=== PATIENT | female | born 1970 | race Caucasian/White ===

== ENCOUNTER 2024-02-20 06:42 | Observation (INO) ==
--- NOTE | 2024-02-20 08:16 | History & Physical Bridge Note ---
Date of Service February 20, 2024 History & Physical Bridge Note I have examined the patient, reviewed the History & Physical and in the interval since the performance of the History & Physical I have noted the following changes of clinical significance: no changes noted
--- NOTE | 2024-02-20 08:17 | Pre Anesthesia Assessment ---
Date of Service February 20, 2024 Pre Sedation Assessment Vital Signs Temp Pulse Resp BP Pulse Ox O2 Del Method 02/20/24 06:55 36.7 C 58 L 14 113/65 100 Room Air Cardiovascular RRR, no murmur, no edema + femoral pulses present and + radial pulses present; no JVD no edema Respiratory + respiratory effort normal; no respiratory distress, no labored breathing and no retractions no crackles, no rales, no rhonchi and no wheezes Pre-Sedation Airway Assessment Smoking Status: Former smoker Hx Sleep Apnea: No Short, Thick Neck: No Thyromental Distance: > or= 3.5 Finger Breadths Oral Cavity: + Dental Abnormalities Mallampati Class: III ASA: ASA3 NPO Status Date of Last Intake of Fluids: 02/20/24 Time of Last Intake of Fluids: 06:00 Last Oral Intake of Fluids Comment: sip of water with meds Date of Last Intake of Solid Food: 02/19/24 Time of Last Intake of Solid Foods: 18:00 Procedure Planning Contraindications for Sedation: none Current Medications Reviewed: Yes Notes The planned sedation has been discussed with the patient. Informed Consent was obtained. I have identified the patient, determined the appropriateness of sedation and have assessed the patient immediately prior to the procedure. All medicine(s) and interventions are by my order.
--- NOTE | 2024-02-20 09:10 | Post Anesthesia Assessment ---
Date of Service February 20, 2024 Post Sedation Assessment Vital Signs Temp Pulse Resp BP Pulse Ox O2 Del Method 02/20/24 06:55 36.7 C 58 L 14 113/65 100 Room Air Recovery Score Activity: Moves 4 extremities Respiration: Deep Breath/Cough Circulation: +/-20% PreAnes Value Consciousness: Arouseable (by name) Oxygen Saturation: > 92% On Room Air Discharge Sedation Level of Care: Phase I Post Sedation Plan On clinical assessment, the patient appears to have tolerated the sedation without complications. Patient is recovering as anticipated. Patient will continue to be monitored by nursing and may be discharged when sedation discharge criteria are met per below protocol. Upon Completions of procedure up to 15 minutes continue every 5 minute vital signs and the P.A.R. score; then discharge to a Phase I or Fast Track to Phase II per the following guidelines: * Discharge Patient to appropriate Phase II area if PAR is 8 or greater or return to pre- procedure baseline. The post - procedure orders will be as directed. * If PAR score is less than 8 or not return to pre-procedure baseline then patient will follow Phase I monitoring till PAR is reached for Phase II. The Phase I may be done in procedure room or may call to secure a Phase I area. * If naloxone or flumazenil are used for reversal, hold in Phase I for continued monitoring from when last reversal dose was given for a minimum of 60 minutes or longer pending the nurse and/or physician discretion of patient condition before discharge to Phase II. Please call the Sedation Physician to re-evaluate and complete post-note for discharge to Phase II area. Do NOT discharge from procedure sedation or Phase 1 until post- sedation evaluation note is complete by procedure /sedation MD Sedation Discharge Instructions to be given to the patient at discharge to home.
--- NOTE | 2024-02-20 09:19 | Cardiac Catheterization ---
Cardiac Cath Procedure Full Procedure Date February 20, 2024 Pre-Procedure Diagnosis Pre-Procedure Diagnosis: Angina and Positive Stress Test AUC Score AUC Score: 7 Post-Procedure Diagnosis Post-Procedure Diagnosis: Severe CAD and Normal Intracardiac Pressures Procedure(s) Performed Procedure(s) Performed: Coronary Angiography and Left Heart Cath Scoop Filler Edmundo Cooley DO Manager Educational(s) Builder'S Labourer DUPLICATOR PUNCH OPERATOR Estimated Blood Loss Estimated Blood Loss: 5cc Medication(s) Medication(s): Fentanyl, Heparin, Lidocaine 1%, Nicardipine, Nitroglycerin and Versed Summary of Findings 90% mid LAD stenosis distal to first septal apparel embroidery digitizer. Hemodynamics Rest Ao:: 97/57/74 Final Ao: 106/56/78 LV: 108/-4/10 Recommendations Recommendations: PCI without planned CABG Specimens Specimens: None Radiation Exposure (mGy) 201 Contrast (mls) 30 Fluids (cc crystalloids) Fluids (cc crystalloids): 70 Nss Drains Drains: N/A Anesthesia Moderate sedation. Start 0839. End 0903. Sedation monitor: Navin MENDOZA Procedural Complication(s) None Disposition Patient remained in Payroll Representative for PCI of LAD. I attest to the content of the Intraoperative Record and any orders documented therein. Any exceptions are noted below. ACC Data: Payroll Representative Cardiac Status Clinical evaluation leading to the procedure Progressive exertional angina. Abnormal exercise stress echo suggestive of ischemia. CAD Presenation: Positive Stress Test and Unstable angina Anginal Classification: CCS III Heart Failure: No Imaging Studies Past 6 Months: Yes Stress Studies Past 6 Months: Yes Stress Echocardiogram: Yes - Positive and Risk/Extent of Ischemia (Intermediate) Coronary Anatomy Dominant: Right Left Main (% Stenosis): Normal LAD (% Stenosis): Proximal (20%) and Mid (90% with 30% stenosis distal to 2nd diagonal branch vessel.) D1 (% Stenosis): Ostial (20%) D2 (% Stenosis): Ostial (30%) Circumflex (% Stenosis): Normal (Small nondominant vessel) OM1 (% Stenosis): Normal RCA (% Stenosis): Proximal (30%) and Mid (Luminal irregularities, 20%) R PDA (% Stenosis): Normal R PL1 (% Stenosis): Normal Diagnostic Physicians Name: Edmundo Cooley DO Closure Device Percutaneous Entry Location: Radial Closure Device: Radial Band Recommendations: PCI without planned CABG Intraprocedure Events Significant Disection: No Perforation: No
[2024-02-20] MEDS: fentaNYL citrate PF 100 MCG/2 ML VIAL ONE (10:04)
[2024-02-20] MEDS: HEPARIN (PORCINE) 1000 UNIT/ML 10 ML (CATH LAB USE ONLY) ONE (10:06)
[2024-02-20] MEDS: MIDAZOLAM HCL 1 MG/ML 2ML VIAL ONE ×2 (10:07→10:08)
[2024-02-20] MEDS: OPTIRAY 350 ONE (10:07)
[2024-02-20] MEDS: niCARdipine HCL INJ 2.5 MG/ML 10 ML AMP ONE (10:07)
[2024-02-20] MEDS: NITROGLYCERIN/D5W 100MCG/ML 20ML SYR ONE (10:08)
[2024-02-20] MEDS: CLOPIDOGREL BISULFATE 300 MG TAB ONE (10:08)
[2024-02-20] MEDS: CLOPIDOGREL BISULFATE 75 MG TAB ONE (10:08)
--- NOTE | 2024-02-20 10:16 | Post Anesthesia Assessment ---
Date of Service February 20, 2024 Post Sedation Assessment Vital Signs Temp Pulse Resp BP Pulse Ox O2 Del Method 02/20/24 06:55 98.1 F 58 L 14 113/65 100 Room Air Recovery Score Activity: Moves 4 extremities Respiration: Deep Breath/Cough Circulation: +/-20% PreAnes Value Consciousness: Arouseable (by name) Oxygen Saturation: > 92% On Room Air Discharge Sedation Level of Care: Fast Track Phase II Post Sedation Plan On clinical assessment, the patient appears to have tolerated the sedation without complications. Patient is recovering as anticipated. Patient will continue to be monitored by nursing and may be discharged when sedation discharge criteria are met per below protocol. Upon Completions of procedure up to 15 minutes continue every 5 minute vital signs and the P.A.R. score; then discharge to a Phase I or Fast Track to Phase II per the following guidelines: * Discharge Patient to appropriate Phase II area if PAR is 8 or greater or return to pre- procedure baseline. The post - procedure orders will be as directed. * If PAR score is less than 8 or not return to pre-procedure baseline then patient will follow Phase I monitoring till PAR is reached for Phase II. The Phase I may be done in procedure room or may call to secure a Phase I area. * If naloxone or flumazenil are used for reversal, hold in Phase I for continued monitoring from when last reversal dose was given for a minimum of 60 minutes or longer pending the nurse and/or physician discretion of patient condition before discharge to Phase II. Please call the Sedation Physician to re-evaluate and complete post-note for discharge to Phase II area. Do NOT discharge from procedure sedation or Phase 1 until post- sedation evaluation note is complete by procedure /sedation MD Sedation Discharge Instructions to be given to the patient at discharge to home.
--- NOTE | 2024-02-20 10:19 | Cardiac Catheterization ---
ACC Data: Carpenter Prototype Cardiac Status Clinical evaluation leading to the procedure CAD Presenation: Positive Stress Test and Unstable angina Anginal Classification: CCS III Diagnostic Physicians Name: Ramirez Monsalve MD Closure Device Recommendations: PCI without planned CABG Cardiac Cath Procedure Full Procedure Date February 20, 2024 Pre-Procedure Diagnosis Pre-Procedure Diagnosis: Angina and Positive Stress Test AUC Score AUC Score: 7 Post-Procedure Diagnosis Post-Procedure Diagnosis: Severe CAD and Normal Intracardiac Pressures Procedure(s) Performed Procedure(s) Performed: Coronary Angiography, Drug Eluting Stent and IVUS Flash Drier Operator Ramirez Monsalve MD Food Service Steward(s) Deibler Estimated Blood Loss Estimated Blood Loss: 20 Medication(s) Medication(s): Clopidogrel, Fentanyl, Heparin, Nicardipine, Nitroglycerin and Versed Summary of Findings Indication: Progressive angina, abnormal stress test Access: 6 Fr right radial artery Catheters: EBU 3.5 guide Findings: For full details of patient's coronary angiography please see cath report dictated by Dr. Cooley. Briefly, patient found to have severe single-vessel disease with 90+% mid LAD involving bifurcation of D1, D2. Decision to proceed with PCI. -- PCI -- Antithrombotic therapy: Heparin, clopidogrel Procedure: Left main cannulated with EBU 3.5 guide Pre-procedure flow MANUELA 2-3 Trapper Bird 50 wire placed into D1 Whisper wire passed across LAD lesion into distal vessel Mid LAD lesion predilated with 2.5 compliant balloon Velasquez IVUS catheter placed to mid LAD. Pullback revealed diffuse mildly calcified disease extending back to near LAD ostium. No significant left main disease Dilated lesion stented with 2.5 x 30 mm Amanuel drug-eluting stent Stent post-dilated with 3.0 noncompliant balloon Repeat IVUS showed well-expanded, well apposed stent with no apparent edge complications. IC vasodilators administered for spasm Post procedure MANUELA 3 flow, stent well expanded with minimal residual stenosis and no apparent cardiac complications. Arterial Closure: TR band Summary: 1. Successful PCI of proximal to mid LAD with single drug-eluting stent (2.5 x 30 mm Amanuel; postdilated with 3.0 NC). Recommendations: To PCU for continued monitoring Loaded with clopidogrel 600 mg in Carpenter Prototype Continue dual-antiplatelet therapy for at least 6 months Continue statin, and ASCVD risk factor modification Consult cardiac Rehab Hemodynamics Rest Ao:: 114/58/82 Final Ao: 98/49/69 LV: -- Recommendations Recommendations: PCI without planned CABG Specimens Specimens: None Radiation Exposure (mGy) 634 Contrast (mls) 115 Fluids (cc crystalloids) Fluids (cc crystalloids): 70 Nss Drains Drains: N/A Anesthesia Moderate sedation. Start 09. End 952. Sedation monitor: Navin MENDOZA Procedural Complication(s) None Disposition PCU I attest to the content of the Intraoperative Record and any orders documented therein. Any exceptions are noted below. [facility] Card Cath Procedure Codes Therapeutic Services & Ancillary Procedure 1: Cardiovascular Tx and Anc Procedures: 53955 IV Ultrasound (Coronary or Graft) Moderate Sedation Procedure 1: Sedation/Anesthesia: 68771 Mod Sedation by the same physician; Ea [id number] Minutes Stenting Procedure 1: Cardiovascular Stent Procedures: 91932 Perc transcatheter placement of intracoronary stent(s), with ang PG Care Time/CCT Total # of Minutes Spent Total Time Spent with Patient: Total time spent is greater than 50% in coordination of care (as documented) at patient's floor/unit and/or counseling patient:
--- NOTE | 2024-02-20 10:49 | History & Physical Report ---
Date of Service February 20, 2024 Assessment & Plan (1) Unstable angina: Plan: Pt was evaluated for progressive symptoms of angina and underwent a stress test in January which was positive. She was seen by [facility] cardiology and cardiac cath was recommended. She underwent cardiac cath today w/ Dr. Cooley and found to have stenosis in LAD. She then underwent PCI with Dr. Monsalve. Patient was found to have severe single-vessel disease with 90+% mid LAD involving bifurcation of D1, D2. Now s/p Successful PCI of proximal to mid LAD with single drug-eluting stent (2.5 x 30 mm [place]; postdilated with 3.0 NC). Recommendations: To PCU for continued monitoring Loaded with clopidogrel 600 mg in Surg Physician Asst Continue dual-antiplatelet therapy for at least 6 months Continue statin, and ASCVD risk factor modification Consult cardiac Rehab Pt to cont. ASA, plavix, metoprolol, rosuvastatin [facility] cardiology - Dr. Cooley following Hx of smoking - reports she quit smoking a year ago Depression - cont. citalopram History of Present Illness Chief Complaint: unstable angina/ positive stress test Primary Care Provider: NO PCP 53 yo F with hx of thyroid nodule/ multinodular goiter, migraine, depression, bipolar d/o, HTN, HLD , hx of smoking who was evaluated for progressive symptoms of angina and underwent a stress test in January which was positive. She was seen by [facility] cardiology and cardiac cath was recommended. She underwent cardiac cath today w/ Dr. Cooley and found to have stenosis in LAD. She then underwent PCI with Dr. Monsalve. Currently she is feeling well, denies any chest pain, shortness of breath, dizziness. She is only feeling hungry and she is having lunch. Her sister in law is present at the bedside. Pt says she quit smoking a year ago. Says she was having chest pain when walking up the stairs which prompted her the evaluation but most recently she has been having chest pains even at rest when in bed. Stress test - Exercise stress echocardiogram January 2024: Interpretation Summary The examination is adequate to evaluate the referral indication. The stress echo is borderline positive for inducible ischemia. Exercise capacity is below average . There was an accelerated heart rate response to exercise Blood pressure response to exercise was normal. The stress test was terminated due to dyspnea. Mild low-grade chest burning noted in the recovery phase Equivocal 0.5-1mm horizontal/downsloping ST-segment depression is noted in inferior leads. The left ventricular wall motion is normal. With stress the apical inferoseptal wall fails to improve to the degree of other segments. All other wall segments become hyperdynamic The left ventricular ejection fraction increases normally with stress. The left ventricular systolic function is normal. The qualitative LV ejection fraction is 55-59% (normal). Allergies Allergy/AdvReac Type Severity Reaction Status Date / Time aspirin AdvReac Abdominal Verified 02/20/24 07:15 Pain topiramate [From Topamax] AdvReac Drowsy Verified 02/20/24 07:15 Home Medications Medication Instructions Recorded Confirmed Type sumatriptan succinate 25 mg tablet 100 mg PO DIRECTED PRN Migraine 09/29/18 09/29/18 History (Imitrex) Headache albuterol sulfate 90 mcg/actuation 2 puff inhalation 6XD PRN Wheezing 02/20/24 02/20/24 History aerosol inhaler aspirin 81 mg tablet,delayed 81 mg PO DAILY 02/20/24 02/20/24 History release citalopram 20 mg tablet (Celexa) 10 mg PO DAILY 02/20/24 02/20/24 History metoprolol succinate 50 mg 50 mg PO DAILY 02/20/24 02/20/24 History tablet,extended release 24 hr nitroglycerin 0.4 mg sublingual 0.4 mg sublingual PRN Chest Pain 02/20/24 History tablet rosuvastatin 10 mg tablet 10 mg PO DAILY 02/20/24 02/20/24 History sumatriptan 20 mg/actuation nasal 20 mg intranasal PRN Headache 02/20/24 History spray Past Med/Surg History Medical History (Updated 02/20/24 @ 10:44 by Eliud Minaya MD) Depression Endometriosis Migraine Multinodular goiter Thyroid nodule Surgical History (Updated 02/20/24 @ 10:45 by Eliud Minaya MD) History of excision of lesion Endometriosis S/P removal of ovarian cyst Family History (Updated 02/20/24 @ 10:47 by Eliud Minaya MD) Grandfather (Maternal) Heart disease Grandmother (Maternal) Cancer Heart disease Social History Smoking Status: Former smoker Hx Alcohol Use: No Hx Substance Use: No Preferred Language: Japanese Communication Ability: Effective Health/Safety Job Titles Required: No Beliefs That Will Affect Care: None Current Living Situation: Family Feels Safe at Home: Yes Assistive Devices: None Review of Systems Review of Systems: All systems reviewed & are unremarkable except as noted in HPI & below Physical Exam Constitutional: WD/WN, vitals as above Eyes: PERRL, conjunctivae normal, anicteric sclerae ENMT: external ear and nose normal, oropharynx normal Neck: normal visual inspection Respiratory: normal respiratory effort, lungs clear to auscultation Cardiovascular: RRR, no murmur, no edema Chest (Breasts): Chest: normal inspection of chest Gastrointestinal (Abdomen): normal bowel sounds, soft, nontender, no hepatosplenomegaly Musculoskeletal: no cyanosis or clubbing, extremities motor strength 5/5 Skin: no rashes, warm and dry Neurologic: PERRL, EOMI, accommodation nl, no face palsy, no dysarthria Psychiatric: A+Ox3, euthymic affect Lymphatic: no lymphedema Results & Data Results & Data Vital Signs (Past 12 Hours) Vital Signs Temp Pulse Resp BP BP Pulse Ox O2 Del Method 02/20/24 10:30 53 L 16 118/67 97 Room Air 02/20/24 10:15 54 L 16 112/71 97 Room Air 02/20/24 10:00 57 L 16 109/62 97 Room Air 02/20/24 06:55 36.7 C 58 L 14 113/65 100 Room Air Medications Administered Current Inpatient Medications Aspirin (Aspirin 81 Mg Ectab) 81 mg PO QAM AIMEE Stop: 03/22/24 08:59 Clopidogrel Bisulfate (Clopidogrel Bisulfate 75 Mg Tab) 75 mg PO QAM AIMEE Stop: 03/22/24 08:59 Sodium Chloride (Nss) 1,000 mls @ 100 mls/hr IV .Q10H AIMEE Stop: 02/20/24 15:14 Metoprolol Succinate (Metoprolol Succ 50mg Ext Rel Tab) 50 mg PO DAILY AIMEE Stop: 03/22/24 08:59 Rosuvastatin Calcium (Rosuvastatin Calcium 10 Mg Tab) 10 mg PO DAILY AIMEE Stop: 03/22/24 08:59
[2024-02-20] MEDS ORDERED: ACETAMINOPHEN 325 MG TAB PO PRN (10:53)
[2024-02-20] MEDS ORDERED: POLYETHYLENE (MIRALAX) 17 GM PACK PO PRN (10:53)
--- OUTSIDE RECORDS SUMMARY | 2024-02-20 12:24 | External Medical Summary | Summary of Care ---
Author Name Unknown Organization [facility] Address [address] [place] [address] Phone [phone] Care Team Providers Care Construction Laborer Name Role Phone Nisa Sánchez MD Primary Care Provider Reason for Visit * Reason Comments NEW PATIENT * Evaluate & Treat - Unlimited Visits (Within 10 days (routine)) - Pending Review Specialty Diagnoses / Procedures Referred By Contact Referred To Contact Cardiovascular Medicine / Cardiology Diagnoses Ischemia Rubén Martinez MD [address] [place] [address] Referral ID Status Reason Start Date Expiration Date Visits Requested Visits Authorized [id number] Pending Review Specialty Services Required 01/30/[phone] Encounter Details Date Type Department Care Team (Late st Contact Info) Description 02/01/2024 8:30 AM EDT Office Visit Cardiology, [facility] [address] [place] [facility] [place] [address] Velasquez Rollins DO [address] [facility] [place] [id number] Abnormal stress echocardiogram*; History of smoking Allergies Active Allergy Reactions Criticality Noted Date Comments Topiramate Other (Please comment) 09/05/2010 lethargy documented as of this encounter (statuses as of 02/01/2024) Medications Medication Sig Dispensed Refills Start Date End Date Status SUMAtriptan Succinate 100 MG Oral TabletIndications: Migraine with aura,Chronic daily headache,Cervicalg ia Take one half to one tablet by mouth at start of headache; may repeat once after two hours. Take up to 2 days a week. 9 Tablet 11 08/02/2022 Active SUMAtriptan 20 MG/ACT Nasal Solution (Imitrex)Indicatio ns:Migraine with aura,Chronic daily headache,Cervicalg ia Use 1 spray at start of severe headache for rescue; may repeat once after 2 hours. Can take a triptan up to 2 days/week. 4 Each 0 02/15/2023 Active Aspirin 81 MG Oral Tablet Delayed Release Take 1 Tablet by mouth in the morning. 0 Active Metoprolol Succinate ER 50 MG Oral Tablet Extended Release 24 Hour (toPROL XL) Take 1 Tablet by mouth in the morning. 0 Active Citalopram Hydrobromide 20 MG Oral Tablet (CeleXA) Take 1 Tablet by mouth in the morning. Take 1/2 tab daily . 0 Active Rosuvastatin Calcium 10 MG Oral Tablet (Crestor) Take 1 Tablet by mouth in the morning. 0 Active Nitroglycerin 0.4 MG Sublingual Tablet Sublingual (Nitrostat) Place 1 Tablet under the tongue every 5 minutes as needed for Pain, Chest. 0 Active Albuterol Sulfate HFA 108 (90 Base) MCG/ACT Inhalation Aerosol SolutionIndication s:Bronchitis, complicated Inhale by mouth 2 Puffs every 4 hours as needed for Wheezing or Dyspnea. 3 g 4 02/06/2022 02/01/2024 Discontinued (Medication List Clean Up) Loratadine 10 MG Oral Tablet (Claritin) Take by mouth 1 Tablet in the morning. 30 Tablet 2 04/04/2022 02/01/2024 Discontinued (Medication List Clean Up) Simvastatin 20 MG Oral Tablet (Zocor) Take 1 Tablet by mouth every night at bedtime. 90 Tablet 3 12/21/2022 02/01/2024 Discontinued (Medication List Clean Up) Mirtazapine 45 MG Oral Tablet (Remeron) TAKE ONE TABLET BY MOUTH NIGHTLY AT BEDTIME 90 Tablet 0 07/05/2023 02/01/2024 Discontinued (Medication List Clean Up) documented as of this encounter (statuses as of 02/01/2024) Active Problems Problem Noted Date Diagnosed Date Thyroid nodule 11/06/2018 Multinodular goiter (nontoxic) 09/28/2016 No advance directives 06/25/2014 Overview: No, Advance Directive brochure given. History of smoking 06/19/2008 Depression 07/30/2002 Overview: anxiety disorder CLASSICAL MIGRAINE WITHOU MENTION OF INTRACTABLE MIGRAINE 04/01/2002 Endometriosis 04/01/2002 Abnormal Papanicolaou smear of vagina and vagina l HPV 04/01/2002 Overview: ICD-10 update of inactive term documented as of this encounter (statuses as of 02/01/2024) Resolved Problems Problem Noted Date Diagnosed Date Resolved Date Food insecurity 06/20/2021 12/27/2022 Overview: Per [facility] Protocol Bipolar 1 disorder 11/01/2016 1 Thyromegaly 03/29/2015 10/14/2017 Musculoskeletal pain 09/17/2014 015 Migraine with aura 05/13/2014 4 Hyperbilirubinemia 05/04/2014 7 Physical exam, routine 05/04/201401/06 SOB (shortness of breath) 03/05/2013 Chronic daily headache 05/08/201210/14 Cervicalgia 05/08/2012 10/14/2017 LUMP OR MASS IN BREAST - left 07/20/2010 10/14/2017 Costochondritis 06/19/2008 10/14/2017 Acute bronchitis, antibiotics not indicated 11/17/2007 01/07/2009 Overview: Resolved per Benign Acute Dxs Protocol #3 Primary thrombocytopenia 04/15/200301/2017 Chronic sinusitis 04/01/2002 10/14/2017 documented as of this encounter (statuses as of 02/01/2024) Immunizations Name Administration Dates Next Due PPD 12/18/2022 documented as of this encounter Social History Tobacco Use Types Packs/Day Years Used Date Smoking Tobacco: Former Cigarettes 0.5 28 Smokeless Tobacco: Never Comments:Stopped Smoking Dec ember 2021 Alcohol Use Standard Drinks/Week Comments No 0 (1 standard drink = 0.6 oz pur e alcohol) PHQ-2 Answer Date Recorded PHQ-2 Score 7 08/30/2020 Hunger Vital Sign Answer Date Recorded Within the past 12 months, y ou worried that your food would run out before you got the money to buy more. Never true 12/16/19 23 Within the past 12 months, t he food you bought just didn't last and you didn't have money to get more. Never true 12/16/2022 Sex and Gender Information Value Date Recorded Sex Assigned at Female 12/16/2022 7:22 AM EST Gender Identity Female 12/16/2022 7:22 AM EST Sexual Orientation Straight 12/16/2022 7: 22 AM EST Job Start Date Occupation Industry Not on file Not on file Not on file documented as of this encounter Last Filed Vital Signs Vital Sign Reading Time Taken Comments Blood Pressure 122/84 02/01/2024 8:40 AM EDT Pulse 66 02/01/2024 8:40 AM EDT Temperature - - Respiratory Rate 16 02/01/2024 8:40 AM EDT Oxygen Saturation - - Inhaled Oxygen Concentration - - Weight 57.2 kg (126 lb) 02/01/2024 8:40 AM EDT Height - - Body Mass Index 20.34 05/23/2023 11:44 AM EDT documented in this encounter Functional Status Functional Status Response Date of Assess ment Are you deaf or do you have serious difficulty hearing? No 10/06/2015 Are you blind or do you have serious difficulty seeing, even when wearing glasses? No 10/06/2015 Do you have serious difficul ty walking or climbing stairs? (5 years old or older) No 10/06/2015 Do you have difficulty dress ing or bathing? (5 years old or older) No 10/06/2015 Because of a physical, menta l, or emotional condition, do you have difficulty doing errands alone such as visiting a doctor s office or shopping? (15 years old or older) Yes-Due to migraine pain 10/06/2015 Cognitive Status Response Date of Assessm ent Because of a physical, menta l, or emotional condition, do you have serious difficulty concentrating, remembering, or making decisions? (5 years old or older) Yes-Due to migraine pain 10/06/2015 documented as of this encounter Progress Notes * Velasquez Rollins, DO - 02/01/2024 9:06 AM EDT Cardiology Outpatient Consultation Viet Baumannki Olya Rushing is a 53 year old female referred by Nisa Clements MD who is seen in consultation for abnormal stress test. HPI: This is a 53-year-old female patient with no prior history of heart disease. She did smoke up untillast year. She is treated for HLD and hypertension. No previous history of diabetes. She has noticed some activity related chest pain. She typically describes walking up flight of stairs and noticingsome discomfort. As a result, she underwent an exercise stress echocardiogram. There was a below average exercise performance with borderline EKG changes and possible inferior wall wall motion abnormalities on the stress echo. Past Medical History: Diagnosis Date Bipolar 1 disorder (HCC) 2013 Chronic sinusitis 04/01/2002 CLASSICAL MIGRAINE WITHOU MENTION OF INTRACTABLE MIGRAINE 04/01/2002 Depressive disorder, not elsewhere classified 07/30/2002 anxiety disorder Endometriosis 04/01/2002 Patient Active Problem List Diagnosis Code CLASSICAL MIGRAINE WITHOU MENTION OF INTRACTABLE MIGRAINE G43.109 Endometriosis N80.9 Abnormal Papanicolaou smear of vagina and vaginal HPV [id number] Depression F32.A No advance directives Z78.9 History of smoking Z87.891 Multinodular goiter (nontoxic) E04.2 Thyroid nodule E04.1 Past Surgical History: Procedure Laterality Date LAP;EXCISION OF LESIONS 2000 endometriosis LIGATE/CUT OVIDUCT(S) 2000 REMOVAL OF OVARIAN CYST(S) 1998 L side, benign Family History Problem Relation Age of Onset Heart Disorder Grandmother (Maternal) Heart Disorder Grandfather (Maternal) Cancer Grandmother (Maternal) lung smoker, bone No Past Hx Mother No Past Hx Father No Past Hx Brother No Past Hx Brother Social History Tobacco Use Smoking status: Former Current packs/day: 0.50 Average packs/day: 0.5 packs/day for 28.0 years (14.0 ttl pk-yrs) Types: Cigarettes Smokeless tobacco: Never Tobacco comments: Stopped Smoking November 09, 2022 Substance Use Topics Alcohol use: No Drug use: No Review of patient's allergies indicates: Allergen Reactions Topamax [Topiramate] Other (Please comment) lethargy Current Outpatient Medications Medication Sig Dispense Refill SUMAtriptan Succinate 100 MG Oral Tablet Take one half to one tablet by mouth at start of headache;may repeat once after two hours. Take up to 2 days a week. 9 Tablet 11 SUMAtriptan 20 MG/ACT Nasal Solution (Imitrex) Use 1 spray at start of severe headache for rescue; may repeat once after 2 hours. Can take a triptan up to 2 days/week. 4 Each 0 Aspirin 81 MG Oral Tablet Delayed Release Take 1 Tablet by mouth in the morning. Metoprolol Succinate ER 50 MG Oral Tablet Extended Release 24 Hour (toPROL XL) Take 1 Tablet by mouth in the morning. Citalopram Hydrobromide 20 MG Oral Tablet (CeleXA) Take 1 Tablet by mouth in the morning. Take 1/2 tab daily . Rosuvastatin Calcium 10 MG Oral Tablet (Crestor) Take 1 Tablet by mouth in the morning. Nitroglycerin 0.4 MG Sublingual Tablet Sublingual (Nitrostat) Place 1 Tablet under the tongue every5 minutes as needed for Pain, Chest. Albuterol Sulfate HFA 108 (90 Base) MCG/ACT Inhalation Aerosol Solution Inhale by mouth 2 Puffs every 4 hours as needed for Wheezing or Dyspnea. (Patient not taking: Reported on 12/18/2022) 3 g 4 Loratadine 10 MG Oral Tablet (Claritin) Take by mouth 1 Tablet in the morning. (Patient not taking:Reported on 12/18/2022) 30 Tablet 2 Simvastatin 20 MG Oral Tablet (Zocor) Take 1 Tablet by mouth every night at bedtime. (Patient not taking: Reported on 05/23/2023) 90 Tablet 3 Mirtazapine 45 MG Oral Tablet (Remeron) TAKE ONE TABLET BY MOUTH NIGHTLY AT BEDTIME (Patient not taking: Reported on 02/01/2024) 90 Tablet 0 No current facility-administered medications for this visit. ROS: Review of Systems: See HPI for pertinent positives. All other review of systems is negative. PHYSICAL EXAMINATION BP 122/84 | Pulse 66 | Resp 16 | Wt 57.2 kg (126 lb) | LMP 2018 (Approximate) | BMI 20.34 kg/m | BSA 1.63 m Body mass index is 20.34 kg/m. General: no acute distress and stated age Head: normocephalic, no masses, lesions, tenderness or abnormalities Eyes: conjunctiva are pink and non-injected, sclera clear Neck: supple, no adenopathy, no bruits, normal jugular venous pulse, no hepatojugular reflux Chest: normal shape and normal respiratory effort Lungs: clear to auscultation and percussion Cardiac Exam: - regular rate & rhythm, no murmurs gallops or rubs - normal S1, normal S2 Pulses: 2(+) throughout Abdomen: abdomen soft, non-tender, no abnormal masses and no hepatosplenomegaly Musculoskeletal: no gait disturbance, no joint inflammation, no deforming arthritis Extremities: no edema and no cyanosis Neuro: grossly normal exam Laboratory Data Review: EKG today is normal sinus rhythm and within normal limits Exercise stress echocardiogram January 2024: Interpretation Summary The examination is adequate to evaluate the referral indication. The stress echo is borderline positive for inducible ischemia. Exercise capacity is below average . There was an accelerated heart rate response to exercise Blood pressure response to exercise was normal. The stress test was terminated due to dyspnea. Mild low-grade chest burning noted in the recovery phase Equivocal 0.5-1mm horizontal/downsloping ST-segment depression is noted in inferior leads. The left ventricular wall motion is normal. With stress the apical inferoseptal wall fails to improve to the degree of other segments. All other wall segments become hyperdynamic The left ventricular ejection fraction increases normally with stress. The left ventricular systolic function is normal. The qualitative LV ejection fraction is 55-59% (normal). Impression: 1. New onset angina 2. Positive exercise stress echocardiogram for ischemia 3. History of hypercholesterolemia and smoking Plan: I had a long discussion with the patient and her [id number] today who is with her. I recommendeda cardiac catheterization to her. I explained the risk, benefit and intent to the procedure to her including the potential for a catheter based interventions such as balloon angioplasty or intracoronary stents. The wants to proceed and it will be scheduled for next week at [facility]. This chart was completed in part utilizing [employer] Speech Voice Recognition Software. Grammatical errors, random word insertions, prounoun errors, and incomplete sentences are an occasional consequence of this system due to software limitations, ambient noise, and hardware issues. Any formal questions or concerns about the content, text, or information contained within the body of this dictation should be directly addressed to the provider for clarification. I spent a total of 40-54 minutes (exact time 50 mins) on the date of service in preparation, delivery, and documentation of the care provided to Anjana Rushing excluding any time spent in the performance of separately billed services. Velasquez Rollins DO Cardiology, [facility] [address] [place] [place] [address] 02/01/2024 documented in this encounter Nursing Notes * Galileo Kunz RN - 02/01/2024 8:39 AM EDT Examination Room: room 17 Name: Anjana Rushing Date of : (1970). Reason for Visit: for news patient Interim Hospitalization(s): denies Problems/Concerns: denies Chest Pain/SOB: had chest pain Sunday evening only lsted a few minutes [facility] Discussed: Not applicable [facility] is a way you can talk to your provider online through e-mail. Would you like to sign up? I can activate it for you? ALREADY ACTIVE Patient was instructed to not get up on the exam table until directed and assisted by their provider; patient is to remain seated in the chair/ wheelchair/ exam table for fall prevention and safety reasons. Patient is aware to have assistance to step down off exam table with personnel. Patient voiced full comprehension of instructions. documented in this encounter Plan of Treatment Upcoming Encounters Date Type Department Care Team (Late st Contact Info) Description 02/05/2024 1:00 PM EDT Telemedicine Endocrinology, [place] [address] [place] [address] Leslie Joya PA-C [address] [place] [address] Scheduled Orders Name Type Priority Associated Diagnoses Orde r Schedule EKG COMPLETE (TRACING AND INTERP) EKG Routine Abnormal stress echocardiogram History of smoking Ordered: 02/01/2024 Health Maintenance Due Date Last Done Comments DTaP,Tdap,and Td Vaccines (1 - Tdap) 1989 Hepatitis B (1 of 3 - 19+ 3-dose series) 1989 HPV/Co-Test 2000 Mammogram 2010 Cologuard 2015 Colonoscopy 2015 Colorectal Cancer Screening 2015 Fecal Occult Blood Test 2015 Sigmoidoscopy 2015 Zoster Vaccines (1 of 2) 2020 Depression Screening 08/30/2021 08/30/2020, 09/28/20 16 COVID-19 Vaccine ( season) 2023 Influenza Vaccine (FLU shot) (#1) 2023 02/20/2018 (Refused) Cervical Cancer Screening 02/03/2024 Pap Smear 02/03/2024 02/02/2021, 06/12, 02/07/2010, Additional history exists Lipid Panel 12/20/2027 12/20/2022, 11/12, 04/22/2015, Additional history exists GARDASIL-HPV IMMUNIZATION SERIES Aged Out No longer eligible based on patient's age to complete this topic MENINGOCOCCAL (MENACTRA/MENVEO) Aged Out No longer eligible based on patient's age to complete this topic Pneumococcal Vaccine: Pediatrics (0 to 5 Years) and At-Risk Patients (6 to 64 Years) Aged Out No longer eligible based on patient's age to complete this topic documented as of this encounter Medical Devices Not on filedocumented as of this encounter Visit Diagnoses Diagnosis Abnormal stress echocardiogram- Primary Other nonspecific abnormal cardiovascular system function study History of smoking Personal history of tobacco use, presenting hazards to health documented in this encounter Advance Directives Documents on File Type Date Recorded 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
--- OUTSIDE RECORDS SUMMARY | 2024-02-20 12:24 | External Medical Summary | Summary of Care ---
Author Name Unknown Organization [facility] Address [address] [place] [address] Phone [phone] Care Team Providers Care Audiology Assistant Name Role Phone Nisa Sánchez MD Primary Care Provider Reason for Visit * Reason Comments NEW PATIENT * Evaluate & Treat - Unlimited Visits (Within 10 days (routine)) - Pending Review Specialty Diagnoses / Procedures Referred By Contact Referred To Contact Cardiovascular Medicine / Cardiology Diagnoses Ischemia Rubén Martinez MD [address] [place] [address] Referral ID Status Reason Start Date Expiration Date Visits Requested Visits Authorized [id number] Pending Review Specialty Services Required 01/30/[phone] Encounter Details Date Type Department Care Team (Late st Contact Info) Description 02/01/2024 8:30 AM EDT Office Visit Cardiology, [facility] [address] [facility] [place] [address] Velasquez Rollins DO [address] [facility] [place] [id number] Abnormal stress echocardiogram*; History of smoking Allergies [...] Papanicolaou smear of vagina and vaginal HPV [id number] Depression F32.A No advance directives Z78.9 History [...] long discussion with the patient and her [id number] today who is with her. I recommendeda cardiac catheterization to her. I explained the risk, benefit and intent to the procedure to her including the potential for a catheter based interventions such as balloon angioplasty or intracoronary stents. The wants to proceed and it will be scheduled for next week at [facility]. This chart was completed in part utilizing [employer] Speech Voice Recognition Software. Grammatical errors, random [...] separately billed services. Velasquez Rollins DO Cardiology, [facility] [address] [place] [address] 02/01/2024 documented in this encounter Nursing Notes * Galileo Licona RN - 02/01/2024 8:39 AM EDT Examination [...] comprehension of instructions. documented in this encounter Miscellaneous Notes * Addendum Note - Galileo Liocna RN - 02/01/2024 9:32 AM EDTAddended by: GALILEO LICONA on: 02/01/2024 09:32 AM Modules accepted: Orders documented in this encounter Plan of Treatment Upcoming Encounters Date Type Department Care Team (Late st Contact Info) Description 02/05/2024 1:00 PM EDT Telemedicine Endocrinology, [place] [address] [place] [address] Leslie Joya PA-C [address] [place] [address] Scheduled Orders Name Type Priority Associated Diagnoses Orde r Schedule EKG COMPLETE (TRACING AND INTERP) EKG Routine Abnormal stress echocardiogram History of smoking Ordered: 02/01/2024 XR CHEST 2 VIEWS Medical Imaging Routine Abnormal stress echocardiogram History of smoking Ordered: 02/01/2024 PT INR Lab Routine Abnormal stress echocardiogram Expected: 02/01/2024 (Approximate), Expires: 01/31/2025 APTT Lab Routine Abnormal stress echocardiogram Expected: 02/01/2024 (Approximate), Expires: 01/31/2025 BASIC METABOLIC PANEL Lab Routine Abnormal stress echocardiogram Expected: 02/01/2024 (Approximate), Expires: 01/31/2025 CBC Lab Routine Abnormal stress echocardiogram Expected: 02/01/2024 (Approximate), Expires: 01/31/2025 Health Maintenance Due Date Last Done Comments DTaP,Tdap,and Td Vaccines (1 - Tdap) 1989 Hepatitis B (1 of 3 - 19+ 3-dose series) 1989 HPV/Co-Test 2000 Mammogram 2010 Cologuard 2015 Colonoscopy 2015 Colorectal Cancer Screening 2015 Fecal Occult Blood Test 2015 Sigmoidoscopy 2015 Zoster Vaccines (1 of 2) 2020 Depression Screening 08/30/2021 08/30/2020, 09/28/20 16 COVID-19 Vaccine ( - 2022- season) 2023 Influenza Vaccine (FLU shot) (#1) [...] Documents on File Type Date Recorded Patient Investment Analyst Expl anation Advance Directives and Living Will 08/31/2004 Latest Code Status on File Code Status Date Activated Date Inactivated Comments None 08/31/2004 10:58 AM 08/31/2004 10:58 AM Care Teams Audiology Assistant Relationship Specialty Start Date End Date Nisa Sánchez MD [address] [place] [address] PCP - General Internal Medicine 05/12/22 documented as of this encounter"
--- OUTSIDE RECORDS SUMMARY | 2024-02-20 12:24 | External Medical Summary | Summary of Care ---
Author Name Unknown Organization [facility] Address [address] [place] [address] Phone [phone] Care Team Providers Care Addiction Professional Name Role Phone Nisa Sánchez MD Primary Care Provider Reason for Visit * Reason Comments Thyroid Nodule In suppressed TSH * Evaluate & Treat - Unlimited Visits (Within 10 days (routine)) - Authorized Specialty Diagnoses / Procedures Referred By Contac t Referred To Contact Nisa Sánchez MD [address] [place] [address] Leslie Joya PA-C [address] [place] [address] Referral ID Status Reason Start Date Expiration Date Visits Requested Visits Authorized [id number] Authorized Specialty Services Required 02/05/2024 03/07/2024 [id number] Encounter Details Date Type Department Care Team (Late st Contact Info) Description 02/05/2024 1:00 PM EDT Telemedicine Endocrinology, [facility] [address] [place], [place] [phone] Leslie Joya PA-C [address] [place] [address] Multinodular goiter (nontoxic)*; Low TSH level Allergies Active Allergy Reactions Criticality Noted Date Comments Topiramate Other (Please comment) 09/05/2010 lethargy documented as of this encounter (statuses as of 02/05/2024) Medications Medication Sig Dispensed Refills Start Date End Date Status SUMAtriptan Succinate 100 MG Oral TabletIndications:Migr bria with aura,Chronic daily headache,Cervicalgia Take one half to one tablet by mouth at start of headache; may repeat once after two hours. Take up to 2 days a week. 9 Tablet 11 08/02/2022 Active SUMAtriptan 20 MG/ACT Nasal Solution (Imitrex)Indications:M igraine with aura,Chronic daily headache,Cervicalgia Use 1 spray at start of severe [...] as needed for Pain, Chest. 0 Active documented as of this encounter (statuses as of 02/05/2024) Active Problems Problem Noted Date Diagnosed Date [...] as of this encounter (statuses as of 02/05/2024) Resolved Problems Problem Noted Date Diagnosed Date [...] as of this encounter (statuses as of 02/05/2024) Immunizations Name Administration Dates Next Due PPD 12/18/2022 documented as of this encounter Social History Tobacco Use Types Packs/Day Years Used Date Smoking Tobacco: Former Cigarettes 0.5 28 Smokeless Tobacco: Never Comments:Stopped Smoking Dec sylvia 2021 Alcohol Use Standard Drinks/Week Comments No [...] on file documented as of this encounter Functional Status Functional Status Response [...] as of this encounter Progress Notes * Leslie Jyoa PA-C - 02/05/2024 1:00 PM EDT Images from the original note were not included. Endocrinology Clinic Thyroid Disease Initial evaluation CC: Right thyroid nodules and suppressed TSH SUBJECTIVE: Current concerns: None, patient reports neck ultrasound was done routinely to follow-up on thyroid nodules Denies symptoms of hyperthyroidism such as weight loss, heat intolerance, change in bowel habits, hand tremor, nervousness or depression Thyroid hx: March 2015, thyromegaly on exam, neck ultrasound showed multiple thyroid nodules in the right lobe June 2015 biopsy right upper, middle and lower lobe nodules in Endocrinology by Dr. Van, all were benign May 2020 neck ultrasound showed no significant growth in these nodules (<20% in 2 dimensions) November 2023 neck ultrasound shows no significant growth in these nodules OBJECTIVE: No current outpatient medications on file. (Thyroid Agents) Current Outpatient Medications (Other) Medication Sig Dispense Refill Aspirin 81 MG Oral Tablet Delayed Release Take 1 Tablet by mouth in the morning. Citalopram Hydrobromide 20 MG Oral Tablet (CeleXA) Take 1 Tablet by mouth in the morning. Take 1/2 tab daily . Metoprolol Succinate ER 50 MG Oral Tablet Extended Release 24 Hour (toPROL XL) Take 1 Tablet by mouth in the morning. Nitroglycerin 0.4 MG Sublingual Tablet Sublingual (Nitrostat) Place 1 Tablet under the tongue every5 minutes as needed for Pain, Chest. Rosuvastatin Calcium 10 MG Oral Tablet (Crestor) Take 1 Tablet by mouth in the morning. SUMAtriptan 20 MG/ACT Nasal Solution (Imitrex) Use 1 spray at start of severe headache for rescue; may repeat once after 2 hours. Can take a triptan up to 2 days/week. 4 Each 0 SUMAtriptan Succinate 100 MG Oral Tablet Take one half to one tablet by mouth at start of headache;may repeat once after two hours. Take up to 2 days a week. 9 Tablet 11 Past Medical History: Diagnosis Date Bipolar 1 disorder (HCC) 2013 Chronic sinusitis 04/01/2002 CLASSICAL MIGRAINE WITHOU MENTION OF INTRACTABLE MIGRAINE 04/01/2002 Depressive disorder, not elsewhere classified 07/30/2002 anxiety disorder Endometriosis 04/01/2002 Past Surgical History: Procedure Laterality Date LAP;EXCISION OF LESIONS 2000 endometriosis LIGATE/CUT OVIDUCT(S) 2000 REMOVAL OF OVARIAN CYST(S) 1998 L side, benign Family History Problem Relation Age of Onset Heart Disorder Grandmother (Maternal) Heart Disorder Grandfather (Maternal) Cancer Grandmother (Maternal) lung smoker, bone No Past Hx Mother No Past Hx Father No Past Hx Brother No Past Hx Brother Exam: (2-7) There were no vitals filed for this visit. There is no height or weight on file to calculate BMI. Wt Readings from Last 5 Encounters: 02/01/24 57.2 kg (126 lb) 05/23/23 60.6 kg (133 lb 9.6 oz) 12/18/22 58.5 kg (129 lb) 12/29/21 61.6 kg (135 lb 14.4 oz) 09/15/21 65 kg (143 lb 4.8 oz) Gen: appears well, in NAD HEENT: no conjunctival injection, MMM Resp: normal respiratory pattern, no dyspnea with conversation CV: no cyanosis or edema Skin: no rash MSK: 4 extremities intact, SCANLON Neuro: awake, alert, appropriate Labs: TSH Results: Lab Results Component Value Date/Time TSH - [facility] 0.36 05/25/2020 01:28 PM TSH - [facility] 0.82 04/22/2015 07:44 AM TSH - [facility] 0.33 04/20/2014 08:57 AM TSH - [facility] 0.214 (A) 11/21/2023 12:00 AM Collection Date and Time: 12/03/2023 1:30 PM Collected By: KARLA RODRÍGUEZ Received: 12/03/2023 1:30 PM T4, FREE Component Ref Range & Units 2 mo ago T4, Free 0.9 - 1.7 ng/dL 1.1 Imaging: ULTRASOUND THYROID HISTORY: thyroid nodule COMPARISON: None ultrasound dated 06/04/2020, 04/12/2015 FINDINGS: RIGHT LOBE: 6.7 x 2.1 x 1.8cm LEFT LOBE: 4.7 x 1.7 x 1.9cm ISTHMUS: 0.2cm in thickness. NODULES: Nodule 1: Right midpole solid, isoechoic, wider than tall nodule with smooth margin and macrocalcifications measuring 1.7 x 0.8 x 1.6 cm, previously 1.7 x 0.8 x 1.5 cm on 06/04/2020 (TR-4). Nodule 2: Right inferior solid, hypoechoic, wider than tall nodule with smooth margin and new echogenic foci measuring 1.4 x 0.6 x 1.4 cm, previously 1.3 x 0.6 x 1.3 cm on 06/04/2020 (TR-5). Nodule 3: Right inferior pole solid, isoechoic, wider than tall nodule with small margin and comet tail artifact measuring 1.4 x 1.2 x 1.3 cm, previously 1.3 x 1.1 x 1.2 cm on 06/04/2020 (TR-3). LATERAL NECK: Not evaluated. IMPRESSION: 1. TR-5 nodule in the right inferior thyroid lobe with new echogenic foci measuring 1.4 cm. Consider FNA. 2. No significant change in TR-4 and TR-3 nodules in the right thyroid lobe. ASSESSMENT AND PLAN: 53 year old female presents for evaluation of right thyroid nodules present since 2014 and suppressed TSH. Fine-needle aspiration of all 3 nodules was performed in 2014 with benign pathology. Most recent neck ultrasound from November 2023 shows no significant increase in growth of these nodules. Recommend follow-up neck ultrasound in 3 years or sooner if the patient or examiner notice a changein how her neck looks or feels. For her suppressed TSH with normal free T4, will perform a follow-up TSH, free T3 and free T4. Next visit: None scheduled, to be determined based on test results Shannon Joya PA-C [facility] Endocrinology Supervising Physician was available at the time this office visit. I spent a total of 16 minutes on the date of service in preparation, delivery, and documentation ofthe care provided to Anjana Rushing excluding any time spent in the performance of separately billed services. Patient location: HOME. I was in a hospital or clinic location. After connecting through [employer],patient was verified with two unique identifiers. Patient (or authorized legal canvas products sales representative) was then informed that this was a Telemedicine visit and being conducted confidentially over secure lines. Methods to assure confidentiality were taken. Patient acknowledged consent and understanding of pr ivacy and security of the Telemedicine visit. The patient agreed to participate. documented in this encounter Plan of Treatment Upcoming Encounters Date Type Department Care Team (Late st Contact Info) Description 03/11/2024 2:30 PM EDT Office Visit Cardiology, [facility] [address] [place] [address] Velasquez Rollins DO [address] [facility] [place] [address] Scheduled Orders Name Type Priority Associated Diagnoses Orde r Schedule TSH Lab Routine Low TSH level Expected: 03/07/2024 (Approximate), Expires: 02/04/2025 T4, FREE Lab Routine Low TSH level Expected: 03/07/2024 (Approximate), Expires: 02/04/2025 T3, FREE Lab Routine Low TSH level Expected: 03/07/2024 (Approximate), Expires: 02/04/2025 Health Maintenance Due Date Last Done Comments DTaP,Tdap,and Td Vaccines (1 - Tdap) 1989 Hepatitis B (1 of 3 - 19+ 3-dose series) 1989 HPV/Co-Test 2000 Mammogram 2010 Cologuard 2015 Colonoscopy 2015 Colorectal Cancer Screening 2015 Fecal Occult Blood Test 2015 Sigmoidoscopy 2015 Zoster Vaccines (1 of 2) 2020 Depression Screening 08/30/2021 08/30/2020, 09/28/20 16 COVID-19 Vaccine (1 - 2022- season) 2023 Influenza Vaccine (FLU [...] as of this encounter Visit Diagnoses Diagnosis Multinodular goiter (nontoxic)- Primary Nontoxic multinodular goiter Low TSH level Nonspecific abnormal results of thyroid function study documented in this encounter Advance Directives Documents on File Type Date Recorded Patient Promotions Director Expl anation Advance Directives and Living Will 08/31/2004 Latest Code Status on File Code Status Date Activated Date Inactivated Comments None 08/31/2004 10:58 AM 08/31/2004 10:58 AM Care Teams Addiction Professional Relationship Specialty Start Date End Date Nisa Sánchez MD [address] [place] [address] PCP - General Internal Medicine 05/12/22 documented as of this encounter
--- OUTSIDE RECORDS SUMMARY | 2024-02-20 12:24 | External Medical Summary ---
Author Name Unknown Address Unknown Organization [facility] [address] [place] [address] Laboratory Report Ordering Provider Test Date Status ANAHY HAIR 02/01/2024 09:44:59 Final Anticoagulation may affect t esting. Refer to [facility] Test Catalog for a list of effects. Observation Date Value Abnormality Reference (Units ) Status aPTT panel - Platelet poor plasma 02/01/2024 09:44:59 29 21-38 (seconds) Final Performing Location [facility] [address] [place] [id number]
--- OUTSIDE RECORDS SUMMARY | 2024-02-20 12:24 | External Medical Summary | Summary of Care ---
Author Name Unknown Organization [facility] Address [address] [place] [address] Phone [phone] Care Team Providers Care Operations Architect Name Role Phone Nisa Sánchez MD Primary Care Provider Reason for Visit * Reason Comments Outpatient Testing Encounter Details Date Type Department Care Team (Late st Contact Info) Description 02/01/2024 10:10 AM EDT Laboratory Laboratory, [facility] [address] [place] [id number] [facility] [address] [place] [address] Abnormal stress echocardiogram Allergies Active Allergy Reactions Criticality Noted Date [...] Date Food insecurity 06/20/2021 12/27/2022 Overview: Per [facility] Protocol Bipolar 1 disorder 11/01/2016 1 [...] pain 10/06/2015 documented as of this encounter Plan of Treatment Upcoming Encounters Date Type Department Care Team (Late st Contact Info) Description 02/01/2024 10:20 AM EDT Imaging Radiology [address] [place] [address] Arrived 02/05/2024 1:00 PM EDT Telemedicine Endocrinology, [facility] [address] [place] [address] Leslie Joya PA-C [address] [place], [place] [phone] 03/11/2024 2:30 PM EDT Office Visit Cardiology, [facility] [address] [place] [address] Velasquez Rollins, [address] [facility] [place] [address] Pending Results Name Type Priority Associated Diagnoses Date /Time PT INR Lab Routine Abnormal stress echocardiogram 02/01/2024 9:44 AM EDT APTT Lab Routine Abnormal stress echocardiogram 02/01/2024 9:44 AM EDT BASIC METABOLIC PANEL Lab Routine Abnormal stress echocardiogram 02/01/2024 9:44 AM EDT CBC Lab Routine Abnormal stress echocardiogram 02/01/2024 9:44 AM EDT Health Maintenance Due Date Last Done Comments [...] this encounter Visit Diagnoses Diagnosis Abnormal stress echocardiogram Other nonspecific abnormal cardiovascular system function study documented in this encounter Advance Directives Documents on File Type Date Recorded Patient Associate Account Executive Expl anation Advance Directives and Living Will 08/31/2004 Latest Code Status on File Code Status Date Activated Date Inactivated Comments None 08/31/2004 10:58 AM 08/31/2004 10:58 AM Care Teams Operations Architect Relationship Specialty Start Date End Date Nisa Sánchez MD [address] [facility] [address] PCP - General Internal Medicine 05/12/22 documented as of this encounter
--- OUTSIDE RECORDS SUMMARY | 2024-02-20 12:24 | External Medical Summary | Summary of Care ---
Author Name Unknown Organization [facility] Address [address] [place] [address] Phone [phone] Care Team Providers Care Hollow Ware Maker Name Role Phone Nisa Sánchez MD Primary Care Provider Reason for Referral * Evaluate & Treat - Unlimited Visits (Within 10 days (routine)) - Pending Review Specialty Diagnoses / Procedures Referred By Contact Referred To Contact Cardiovascular Medicine / Cardiology Diagnoses Ischemia Rubén Martinez MD [address] [place] [address] Referral ID Status Reason Start Date Expiration Date Visits Requested Visits Authorized [id number] Pending Review Specialty Services Required 01/30/[phone] Question Answer Referral Priority Within 10 days (routine) Where should this appointment be scheduled? [facility] To which of the following clinics are you referring your patient? General Cardiology Clinic Encounter Details Date Type Department Care Team (Late st Contact Info) Description 01/30/2024 Orders Only Access Center, [address] Ext *DO NOT REMOVE THIS DEPARTMENT* [place] [id number] Request, External Referral Ischemia* Allergies Active Allergy Reactions Criticality Noted Date Comments Topiramate Other (Please comment) 09/05/2010 lethargy documented as of this encounter (statuses as of 01/30/2024) Medications Medication Sig Dispensed Refills Start Date End Date Status Albuterol Sulfate HFA 108 (90 Base) MCG/ACT Inhalation Aerosol SolutionIndications :Bronchitis, complicated Inhale by mouth 2 Puffs every 4 hours as needed for Wheezing or Dyspnea. 3 g 4 02/06/2022 Active Additional Information Patient not taking.Reported on 12/18/2022 Loratadine 10 MG Oral Tablet (Claritin) Take by mouth 1 Tablet in the morning. 30 Tablet 2 04/04/2022 Active Additional Information Patient not taking.Reported on 12/18/2022 SUMAtriptan Succinate 100 MG Oral TabletIndications:M igraine with aura,Chronic daily headache,Cervicalgi a Take one half to one tablet by mouth at start of headache; may repeat once after two hours. Take up to 2 days a week. 9 Tablet 11 08/02/2022 Active Simvastatin 20 MG Oral Tablet (Zocor) Take 1 Tablet by mouth every night at bedtime. 90 Tablet 3 12/21/2022 Active Additional Information Patient not taking.Reported on 05/23/2023 SUMAtriptan 20 MG/ACT Nasal Solution (Imitrex)Indication s:Migraine with aura,Chronic daily headache,Cervicalgi a Use 1 spray at start of severe headache for rescue; may repeat once after 2 hours. Can take a triptan up to 2 days/week. 4 Each 0 02/15/2023 Active Mirtazapine 45 MG Oral Tablet (Remeron) TAKE ONE TABLET BY MOUTH NIGHTLY AT BEDTIME 90 Tablet 0 07/05/2023 Active documented as of this encounter (statuses as of 01/30/2024) Active Problems Problem Noted Date Diagnosed Date [...] as of this encounter (statuses as of 01/30/2024) Resolved Problems Problem Noted Date Diagnosed Date [...] as of this encounter (statuses as of 01/30/2024) Immunizations Name Administration Dates Next Due PPD [...] 02/01/2024 8:30 AM EDT Office Visit Cardiology, [facility] [address] [place] [address] Velasquez Rollins, [address] [place] [address] 02/05/2024 1:00 PM EDT [facility] [address] [place] [address] Leslie Joya PA-C [address] [place], [place] [phone] Scheduled Referrals Name Type Priority Associated Diagnoses Orde r Schedule CARDIOLOGY REFERRAL OP Referral Within 10 days (routine) Ischemia Ordered: 01/30/2024 Health Maintenance Due Date Last Done Comments [...] as of this encounter Visit Diagnoses Diagnosis Ischemia- Primary Unspecified circulatory system disorder documented in this encounter Advance Directives Documents on File Type Date Recorded Patient Corporate Intern Expl anation Advance Directives and Living Will 08/31/2004 Latest Code Status on File Code Status Date Activated Date Inactivated Comments None 08/31/2004 10:58 AM 08/31/2004 10:58 AM Care Teams Hollow Ware Maker Relationship Specialty Start Date End Date Nisa Sánchez MD [address] [facility] [place] [address] PCP - General Internal Medicine 05/12/22 documented as of this encounter
--- OUTSIDE RECORDS SUMMARY | 2024-02-20 12:24 | External Medical Summary | Summary of Care ---
Author Name Unknown Organization [facility] Address [address] [place] [address] Phone [phone] Care Team Providers Care Ferry Terminal Agent Name Role Phone Nisa Sánchez MD Primary Care Provider Reason for Visit * Reason Comments NEW PATIENT * Evaluate & Treat - Unlimited Visits (Within 10 days (routine)) - Pending Review Specialty Diagnoses / Procedures Referred By Contact Referred To Contact Cardiovascular Medicine / Cardiology Diagnoses Ischemia Rubén Martinez MD [address] [place] [address] Referral ID Status Reason Start Date Expiration Date Visits Requested Visits Authorized [id number] Pending Review Specialty Services Required 01/30/[phone] Encounter Details Date Type Department Care Team (Late st Contact Info) Description 02/01/2024 8:30 AM EDT Office Visit Cardiology, [facility] [address] [facility] [place] [address] Velasquez Rollins DO [address] [facility] [place] [id number] Abnormal stress echocardiogram*; History of smoking Allergies [...] Papanicolaou smear of vagina and vaginal HPV [id number] Depression F32.A No advance directives Z78.9 History [...] long discussion with the patient and her [id number] today who is with her. I recommendeda cardiac catheterization to her. I explained the risk, benefit and intent to the procedure to her including the potential for a catheter based interventions such as balloon angioplasty or intracoronary stents. The wants to proceed and it will be scheduled for next week at [facility]. This chart was completed in part utilizing [employer] Speech Voice Recognition Software. Grammatical errors, random [...] separately billed services. Velasquez Rollins DO Cardiology, [facility] [address] [place] [address] 02/01/2024 documented in this encounter Nursing Notes [...] Description 02/05/2024 1:00 PM EDT Telemedicine Endocrinology, [place] [address] [place] [address] Leslie Joya PA-C [address] [place] [address] Scheduled Orders Name Type Priority Associated Diagnoses [...] Documents on File Type Date Recorded Patient Adjunct Instructor Of Women'S Studies Expl anation Advance Directives and Living Will 08/31/2004 Latest Code Status on File Code Status Date Activated Date Inactivated Comments None 08/31/2004 10:58 AM 08/31/2004 10:58 AM Care Teams Ferry Terminal Agent Relationship Specialty Start Date End Date Nisa Sánchez MD [address] [place] [address] PCP - General Internal Medicine 05/12/22 documented as of this encounter"
--- OUTSIDE RECORDS SUMMARY | 2024-02-20 12:24 | External Medical Summary | Summary of Care ---
Author Name Unknown Organization [facility] Address [address] [place] [address] Phone [phone] Care Team Providers Care Change Management Administrator Name Role Phone Nisa Sánchez MD Primary Care Provider Reason for Referral * Evaluate & Treat - Unlimited Visits (Within 10 days (routine)) - Pending Review Specialty Diagnoses / Procedures Referred By Adolfo jauregui Referred To Contact Endocrinology/Metabolism / Endocrinology Diagnoses Multiple thyroid nodules Atif Hood MD [address] [place] [address] Referral ID Status Reason Start Date Expiration Date Visits Requested Visits Authorized [id number] Pending Review Specialty Services Required 12/06/[phone] Question Answer Referral Priority Within 10 days (routine) Where should this appointment be scheduled? [facility] For what condition is the patient being referred? Thyroid Issues For which thyroid condition are you referring? Thyroid Nodule Comments Notes scanned in [employer] Encounter Details Date Type Department Care Team (Late st Contact Info) Description 12/06/2023 Orders Only Access Center, [place] [address] [place] [address] Ext *DO NOT REMOVE THIS DEPARTMENT* [place] [address] Request, External Referral Multiple thyroid nodules* Allergies Active Allergy Reactions Criticality Noted Date Comments Topiramate Other (Please comment) 09/05/2010 lethargy documented as of this encounter (statuses as of 12/06/2023) Medications Medication Sig Dispensed Refills Start Date [...] as of this encounter (statuses as of 12/06/2023) Active Problems Problem Noted Date Diagnosed Date [...] as of this encounter (statuses as of 12/06/2023) Resolved Problems Problem Noted Date Diagnosed Date [...] as of this encounter (statuses as of 12/06/2023) Immunizations Name Administration Dates Next Due PPD [...] as of this encounter Plan of Treatment Scheduled Referrals Name Type Priority Associated Diagnoses Order Schedule ENDOCRINOLOGY REFERRAL OP Referral Within 10 days (routine) Multiple thyroid nodules Ordered: 12/06/2023 Health Maintenance Due Date Last Done Comments Hepatitis B (1 of 3 - 3-dose series) 1970 COVID-19 Vaccine (#1) 03/25/1971 DTaP,Tdap,and Td Vaccines (1 - Tdap) 1989 HPV/Co-Test 2000 Mammogram 2010 Cologuard 2015 Colonoscopy 2015 Colorectal Cancer Screening 2015 Fecal Occult Blood Test 2015 Sigmoidoscopy 2015 Zoster Vaccines (1 of 2) 2020 Depression Screening 08/30/2021 08/30/2020, 09/28/20 16 Influenza Vaccine (FLU shot) (#1) 2023 02/20/2018 [...] as of this encounter Visit Diagnoses Diagnosis Multiple thyroid nodules- Primary Nontoxic multinodular goiter documented in this encounter Advance Directives Documents on File Type Date Recorded Patient Linen Attendant Expl anation Advance Directives and Living Will 08/31/2004 Latest Code Status on File Code Status Date Activated Date Inactivated Comments None 08/31/2004 10:58 AM 08/31/2004 10:58 AM Care Teams Change Management Administrator Relationship Specialty Start Date End Date Nisa Sánchez MD [address] [place] [address] PCP - General Internal Medicine 05/12/22 documented as of this encounter
--- OUTSIDE RECORDS SUMMARY | 2024-02-20 12:24 | External Medical Summary ---
Author Name Unknown Address Unknown Organization [facility] [address] [place] [address] Laboratory Report Ordering Provider Test Date Status REGINALDOANAHY 02/01/2024 09:44:59 Final Warfarin Therapy
INR: 2 .0-3.0 conventional anticoagulation
INR: 2.5- 3.5 high intensity anticoagulation Observation Date Value Abnormality Reference (Units ) Status PT 02/01/2024 09:44:59 13.0 11.6-15.2 (seconds) Final INR 02/01/2024 09:44:59 1.0 0.8-1.2 Final Performing Location [facility] [address] [place] [id number]
--- OUTSIDE RECORDS SUMMARY | 2024-02-20 12:24 | External Medical Summary | Summary of Care ---
Author Name Unknown Organization [facility] Address [address] [place] [address] Phone [phone] Care Team Providers Care Disability Rater Name Role Phone Nisa Sánchez MD Primary Care Provider Reason for Visit * Reason Onset Date Comments Procedure 02/05/2024 Encounter Details Date Type Department Care Team (Late st Contact Info) Description 02/05/2024 Telephone Cardiology, [facility] [address] [facility] [address] Vel[address] Rollins, [address] [facility] [place] [address] Procedure Allergies Active Allergy Reactions Criticality Noted Date Comments Topiramate Other (Please comment) 09/05/2010 lethargy documented as of this encounter (statuses as of 02/11/2024) Medications Medication Sig Dispensed Refills Start Date [...] as of this encounter (statuses as of 02/11/2024) Active Problems Problem Noted Date Diagnosed Date [...] as of this encounter (statuses as of 02/11/2024) Resolved Problems Problem Noted Date Diagnosed Date Resolved Date Food insecurity 06/20/2021 12/27/2022 Overview: Per [facility] Protocol Bipolar 1 disorder 11/01/2016 1 [...] as of this encounter (statuses as of 02/11/2024) Immunizations Name Administration Dates Next Due PPD [...] pain 10/06/2015 documented as of this encounter Miscellaneous Notes * Telephone Encounter - Kelsey Jimenez OSA - 02/11/2024 1:15 PM EDT Person calling: Lupe from [facility] in [place] Relationship to patient: other Number to return call: [phone] Reason for call: Lupe is requesitng to speak with office for more information on when patient will be having catheterization procedure. Transferring to nurse. Pharmacy: n/a Provider Name: Dr. Rollins * Telephone Encounter - Galileo Kunz RN - 02/05/2024 12:00 PM EDT Outpatient cardiac cath Instructions Please arrive at [facility] at 0700 on 02/20/2024. Please enter via the Main Entrance and register/check in at the front edger. __X_ Avoid caffeine for 24 hours prior to your procedure _X__ DO NOT eat or drink anything after 10:00PM the night before your procedure ___ DO NOT take N/A for N/A days before procedure. Take your last dose on N/A then stop until afteryour procedure. ___ DO NOT take the following medications on the morning of your procedure: N/A __X_ Take one 325mg Aspirin OR four 81mg Aspirin the morning of your procedure with a small sip of water. __X_ DO TAKE the following medications with a sip of water at their usual times: all other regular morning medications. Celexa; Metoprolol; Rousvastatin; ___ If you take INSULIN: N/A ___ If you take Warfarin/Eliquis/Pradaxa/Xarelto: n/A Remove all jewelry prior arriving at the hospital. Bring your medications with you in their original containers. It may be necessary for you to take them after your procedure. You will be admitted to the hospitals for bedrest and observation after your procedure is complete. Please arrange to have someone drive you home after your procedure. If you have any questions regarding the procedure beforehand or questions in the days after the procedure, please do not hesitate to call the office at [phone]. Pre Op testing needed at least two days prior to procedure: ___Labs ___Chest X-ray ___COVID swab Patient instructed on 02/01/2024 while here in the office. documented in this encounter Plan of Treatment Upcoming Encounters Date Type Department Care Team (Late st Contact Info) Description 03/11/2024 2:30 PM EDT Office Visit Cardiology, [facility] [address] [place] [id number] Velasqeuz Rollins DO [address] [place] [address] Health Maintenance Due Date Last Done Comments DTaP,Tdap,and Td Vaccines (1 - Tdap) 1989 Hepatitis B (1 of 3 - 19+ 3-dose series) 1989 HPV/Co-Test 2000 Mammogram 2010 Cologuard 2015 Colonoscopy 2015 Colorectal Cancer Screening 2015 Fecal Occult Blood Test 2015 Sigmoidoscopy 2015 Zoster Vaccines (1 of 2) 2020 Depression Screening 08/30/2021 08/30/2020, 09/28/20 16 COVID-19 Vaccine ( season) 2023 Cervical Cancer Screening 02/03/2024 Pap Smear 02/03/2024 02/02/2021, 06/12, 02/07/2010, Additional history exists Influenza Vaccine (FLU shot) (Season Ended) 2024 02/20/2018 (Refused) Lipid Panel 12/20/2027 12/20/2022, 11/12, 04/22/2015, Additional [...] Not on filedocumented as of this encounter Advance Directives Documents on File Type Date Recorded Patient Medical Center Manager Expl anation Advance Directives and Living Will 08/31/2004 Latest Code Status on File Code Status Date Activated Date Inactivated Comments None 08/31/2004 10:58 AM 08/31/2004 10:58 AM Care Teams Disability Rater Relationship Specialty Start Date End Date Nisa Sánchez MD [address] [place] [address] PCP - General Internal Medicine 05/12/22 documented as of this encounter
--- OUTSIDE RECORDS SUMMARY | 2024-02-20 12:24 | External Medical Summary | Summary of Care ---
Author Name Unknown Organization [facility] Address [address] [place] [address] Phone [phone] Care Team Providers Care Math Instructor Name Role Phone Nisa Sánchez MD Primary Care Provider Reason for Visit * Reason Onset Date Comments Procedure 02/05/2024 Encounter Details Date Type Department Care Team (Late st Contact Info) Description 02/05/2024 Telephone Cardiology, [facility] [address] [place] [address] Velasquez Rollins, [address] [facility] [place] [phone] Procedure Allergies Active Allergy Reactions Criticality Noted [...] Date Food insecurity 06/20/2021 12/27/2022 Overview: Per [facility] Protocol Bipolar 1 disorder 11/01/2016 1 [...] encounter Miscellaneous Notes * Telephone Encounter - Galileo Kunz RN - 02/05/2024 12:00 PM EDT Outpatient cardiac cath Instructions Please arrive at [facility] at 0700 on 02/20/2024. Please enter via the Main Entrance and register/check in at the front desk manager. __X_ Avoid caffeine for 24 hours prior [...] not hesitate to call the office at [phone]. Pre Op testing needed at least two days prior to procedure: ___Labs ___Chest X-ray ___COVID swab Patient instructed on 02/01/2024 while here in the office. documented in this encounter Plan of Treatment Upcoming Encounters Date Type Department Care Team (Late st Contact Info) Description 02/05/2024 1:00 PM EDT Telemedicine Endocrinology, [place] [address] [place] [address] Leslie Joya PA-C [address] [place] [address] 03/11/2024 2:30 PM EDT Office Visit Cardiology, [facility] [address] [place] [address] Velasquez Rollins, [address] [place] [address] Health Maintenance Due Date Last Done Comments DTaP,Tdap,and Td Vaccines (1 - Tdap) 1989 Hepatitis B (1 of 3 - 19+ 3-dose series) 1989 HPV/Co-Test 2000 Mammogram 2010 Cologuard 2015 Colonoscopy 2015 Colorectal Cancer Screening 2015 Fecal Occult Blood Test 2015 Sigmoidoscopy 2015 Zoster Vaccines (1 of 2) 2020 Depression Screening 08/30/2021 08/30/2020, 09/28/20 16 COVID-19 Vaccine (2022- season) 2023 Influenza Vaccine (FLU shot) (#1) [...] Documents on File Type Date Recorded Patient Seam Taper Machine Expl anation Advance Directives and Living Will 08/31/2004 Latest Code Status on File Code Status Date Activated Date Inactivated Comments None 08/31/2004 10:58 AM 08/31/2004 10:58 AM Care Teams Math Instructor Relationship Specialty Start Date End Date Nisa Sánchez MD [address] [place] [address] PCP - General Internal Medicine 05/12/22 documented as of this encounter
--- OUTSIDE RECORDS SUMMARY | 2024-02-20 12:24 | External Medical Summary | Summary of Care ---
Author Name Unknown Organization [facility] Address [address] [place] [address] Phone [phone] Care Team Providers Care Trailer Driver Name Role Phone Nisa Sánchez MD Primary Care Provider Reason for Referral * Precert (Within 10 days (routine)) - Pending Review Specialty Diagnoses / Procedures Referred By Contac t Referred To Contact Cardiac Studies Diagnoses Angina of effort Procedures ECHO, STRESS (EXERCISE) W/ PHYSICIAN Atif Hood MD [address] [place] [address] Referral ID Status Reason Start Date Expiration Date Visits Requested Visits Authorized [id number] Pending Review Precert 01/17/[phone] Encounter Details Date Type Department Care Team (Late st Contact Info) Description 01/17/2024 Orders Only Cardiac Studies, [facility] [address] [place] [address] Atif Hood MD [address] [place] [address] Angina of effort* Allergies Active Allergy Reactions Criticality Noted Date Comments Topiramate Other (Please comment) 09/05/2010 lethargy documented as of this encounter (statuses as of 01/17/2024) Medications Medication Sig Dispensed Refills Start Date [...] as of this encounter (statuses as of 01/17/2024) Active Problems Problem Noted Date Diagnosed Date [...] as of this encounter (statuses as of 01/17/2024) Resolved Problems Problem Noted Date Diagnosed Date [...] as of this encounter (statuses as of 01/17/2024) Immunizations Name Administration Dates Next Due PPD 12/18/2022 documented as of this encounter Social History Tobacco Use Types Packs/Day Years Used Date Smoking Tobacco: Former Cigarettes 0.5 28 Smokeless Tobacco: Never Comments:Stopped Smoking Dec [place]cl[place] 2021 Alcohol Use Standard Drinks/Week Comments No [...] Description 02/05/2024 1:00 PM EDT Telemedicine Endocrinology, [place] [address] [place] [address] Leslie Joya PA-C [address] [place], [place] [id number] Scheduled Orders Name Type Priority Associated Diagnoses Orde r Schedule ECHO, STRESS (EXERCISE) W/ PHYSICIAN Echocardiology Routine Angina of effort Expected: 01/17/2024, Expires: 02/16/2025 Health Maintenance Due Date Last Done Comments [...] as of this encounter Visit Diagnoses Diagnosis Angina of effort- Primary Other and unspecified angina pectoris documented in this encounter Advance Directives Documents on File Type Date Recorded Patient Stick Puller Expl anation Advance Directives and Living Will 08/31/2004 Latest Code Status on File Code Status Date Activated Date Inactivated Comments None 08/31/2004 10:58 AM 08/31/2004 10:58 AM Care Teams Trailer Driver Relationship Specialty Start Date End Date Nisa Sánchez MD [address] [place] [address] PCP - General Internal Medicine 05/12/22 documented as of this encounter
--- OUTSIDE RECORDS SUMMARY | 2024-02-20 12:24 | External Medical Summary | Summary of Care ---
Author Name Unknown Organization [facility] Address [address] [place] [address] Phone [phone] Care Team Providers Care Motor Analyst Name Role Phone Nisa Sánchez MD Primary Care Provider Reason for Visit * Reason Comments Outpatient Testing Encounter Details Date Type Department Care Team (Late st Contact Info) Description 12/03/2023 1:30 PM EST Laboratory Laboratory, [place] [address] [place] [address] [place], Laboratory [address], [place] [id number] [employer] Other*[id number]; Encounter for long-term (current) use of medications; Abnormal results of liver function studies; Abnormal thyroid function test Allergies Active Allergy Reactions Criticality Noted Date Comments Topiramate Other (Please comment) 09/05/2010 lethargy documented as of this encounter (statuses as of 12/03/2023) Medications Medication Sig Dispensed Refills Start Date [...] as of this encounter (statuses as of 12/03/2023) Active Problems Problem Noted Date Diagnosed Date [...] as of this encounter (statuses as of 12/03/2023) Resolved Problems Problem Noted Date Diagnosed Date [...] as of this encounter (statuses as of 12/03/2023) Immunizations Name Administration Dates Next Due PPD [...] as of this encounter Plan of Treatment Pending Results Name Type Priority Associated Diagnoses Date /Time MYCODE SUBSEQUENT ADULT Lab Routine [employer] Other*[id number] 12/03/2023 1:30 PM EST ALT Lab Routine Encounter for long-term (current) use of medications 12/03/2023 1:30 PM EST CBC WITH WBC DIFFERENTIAL Lab Routine Encounter for long-term (current) use of medications 12/03/2023 1:30 PM EST BILIRUBIN, DIRECT Lab Routine Abnormal results of liver function studies Abnormal thyroid function test 12/03/2023 1:30 PM EST T4, FREE Lab Routine Abnormal results of liver function studies Abnormal thyroid function test 12/03/2023 1:30 PM EST MYCODE SST1 Lab Routine [employer] Other*[id number] 12/03/2023 1:30 PM EST MYCODE SST2 Lab Routine [employer] Other*[id number] 12/03/2023 1:30 PM EST CBC Lab Routine Encounter for long-term (current) use of medications 12/03/2023 1:30 PM EST DIFFERENTIAL, AUTOMATED Lab Routine Encounter for long-term (current) use of medications 12/03/2023 1:30 PM EST Health Maintenance Due Date Last Done Comments [...] as of this encounter Visit Diagnoses Diagnosis [employer] Other*[id number] Encounter for long-term (current) use of medications Encounter for long-term (current) use of other medications Abnormal results of liver function studies Nonspecific abnormal results of liver function study Abnormal thyroid function test Nonspecific abnormal results of thyroid function study documented in this encounter Advance Directives Documents on File Type Date Recorded Patient Solution Coordinator Expl anation Advance Directives and Living Will 08/31/2004 Latest Code Status on File Code Status Date Activated Date Inactivated Comments None 08/31/2004 10:58 AM 08/31/2004 10:58 AM Care Teams Motor Analyst Relationship Specialty Start Date End Date Nisa Sánchez MD [address] [place] [address] PCP - General Internal Medicine 05/12/22 documented as of this encounter
--- OUTSIDE RECORDS SUMMARY | 2024-02-20 12:24 | External Medical Summary ---
Author Name Unknown Address Unknown Organization [id number]:LABORATORY [facility] [address] [place] [address] Laboratory Report Ordering Provider Test Date Status ANAHY HAIR 02/01/2024 09:44:59 Final Observation Date Value Abnormality Reference (Units ) Status WBC, Total 02/01/2024 09:44:59 4.85 4.00-10.8 0 (K/uL) Final RBC 02/01/2024 09:44:59 4.95 3.85-5.15 (M/uL) Final Hemoglobin 02/01/2024 09:44:59 15.3 12.0-15.3 (g/dL) Final HCT 02/01/2024 09:44:59 44.9 36.0-45.2 (%) Final MCV 02/01/2024 09:44:59 90.7 81.5-97.5 (fL) Final MCH 02/01/2024 09:44:59 30.9 27.0-34.0 (pg) Final MCHC 02/01/2024 09:44:59 34.1 32.0-36.0 (g/dL) Final RDW 02/01/2024 09:44:59 12.2 11.5-15.5 (%) Final Platelets 02/01/2024 09:44:59 144 140-400 (K /uL) Final MPV 02/01/2024 09:44:59 10.4 6.6-11.1 ( fL) Final Performing Location [facility]ORY [facility] [address] [place] [address]
--- OUTSIDE RECORDS SUMMARY | 2024-02-20 12:24 | External Medical Summary ---
Author Name Unknown Address Unknown [id number] [address] [place] [address] Laboratory Report Ordering Provider Test Date Status ANAHY HAIR 02/01/2024 09:44:59 Final Observation Date Value Abnormality Reference (Units ) Status BUN 02/01/2024 09:44:59 16 6-20 (mg/dL) Final Creatinine 02/01/2024 09:44:59 0.8 0.5-1.0 (mg/dL) Final Glomerular filtration rate/1.73 sq M.predicted [Volume Rate/Area] in Serum, Plasma or Blood by Creatinine-based formula (CKD-EPI) 02/01/2024 09:44:59 88 >=60 (mL/min) Final eGFR is calculated based on the CKD-EPI 2020 equation Sodium 02/01/2024 09:44:59 141 135-146 (m mol/L) Final Potassium 02/01/2024 09:44:59 4.5 3.5-5.1 (m mol/L) Final Cl 02/01/2024 09:44:59 103 98-107 (mm ol/L) Final CO2 02/01/2024 09:44:59 28 22-32 (mmo l/L) Final Anion gap 02/01/2024 09:44:59 10 7-15 (mmol /L) Final Glucose 02/01/2024 09:44:59 99 70-120 (mg /dL) Final Calcium 02/01/2024 09:44:59 10.2 8.4-10.2 ( mg/dL) Final Performing Location LAB[facility]ATORY [facility] [place] [address] [place] [address]
--- OUTSIDE RECORDS SUMMARY | 2024-02-20 12:24 | External Medical Summary ---
Author Name Unknown Address Unknown Organization K01:[facility] [place] [address] [facility] [address] Laboratory Report Ordering Provider Test Date Status ROWAN LANIER 12/03/2023 13:30:02 Final Observation Date Value Abnormality Reference (Units ) Status Bilirubin, Direct 12/03/2023 13:30:02 0.3 0. 0-0.3 (mg/dL) Final Performing Location [facility] [place] [address] [facility] [address]
--- OUTSIDE RECORDS SUMMARY | 2024-02-20 12:25 | External Medical Summary ---
Author Name Unknown Address Unknown Organization K01:LAB[facility]ATORY [facility] [place] - [address] [facility] [address] Laboratory Report Ordering Provider Test Date Status EVA SANCHEZ 12/03/2023 13:30:02 Final Observation Date Value Abnormality Reference (Units ) Status MYCODE SPECIMEN-SST 12/03/2023 13:30:02 Freezing of extracted DNA, whole blood and/or serum. Final Performing Location LABORATORY [facility] [place] - [address] [facility] [address]
--- OUTSIDE RECORDS SUMMARY | 2024-02-20 12:25 | External Medical Summary ---
Author Name Unknown Address Unknown Organization K01:[facility] [place] [address] [facility] [address] Laboratory Report Ordering Provider Test Date Status EVA SANCHEZ 12/03/2023 13:30:02 Final Observation Date Value Abnormality Reference (Units ) Status MYCODE SPECIMEN-SST 12/03/2023 13:30:02 Freezing of extracted DNA, whole blood and/or serum. Final Performing Location [facility] [place] [address] [facility] [address]
--- OUTSIDE RECORDS SUMMARY | 2024-02-20 12:25 | External Medical Summary | Summary of Care ---
Author Name Unknown Organization [facility] Address [address] [place] [address] Phone [phone] Care Team Providers Care Head Of Global Strategic Partnerships Name Role Phone Nisa Sánchez MD Primary Care Provider Encounter Details Date Type Department Care Team (Late st Contact Info) Description 11/22/2023 Orders Only General Internal Medicine, [facility] [address] [place] [address] Nisa Sánchez MD [address] [place] [address] Allergies Active Allergy Reactions Criticality Noted Date Comments Topiramate Other (Please comment) 09/05/2010 lethargy documented as of this encounter (statuses as of 11/22/2023) Medications Medication Sig Dispensed Refills Start Date [...] as of this encounter (statuses as of 11/22/2023) Active Problems Problem Noted Date Diagnosed Date [...] as of this encounter (statuses as of 11/22/2023) Resolved Problems Problem Noted Date Diagnosed Date [...] as of this encounter (statuses as of 11/22/2023) Immunizations Name Administration Dates Next Due PPD [...] as of this encounter Plan of Treatment Health Maintenance Due Date Last Done Comments [...] Not on filedocumented as of this encounter Procedures Procedure Name Priority Date/Time Associated Diagnosis Comments COMPREHENSIVE METABOLIC PANEL Routine 11/21/2023 CBC Routine 11/21/2023 TSH Routine 11/21/2023 documented in this encounter Results * (ABNORMAL) TSH (11/21/2023) TSH - OUTSIDE LAB 0.214(A) 0.300 - 4.500 UIU/ML OUTSIDE LAB (SEE SCANNED REPORT) Blood Venous blood specimen / Unknown 11/21/2023 Atif Hood MD LAB BLOOD O RDERABLES Performing Organization Address City/[facility] de Phone Number OUTSIDE LAB (SEE SCANNED REPORT) * (ABNORMAL) COMPREHENSIVE METABOLIC PANEL (11/21/2023) Pathologist [facility] CREATININE-OUT SIDE LAB 0.72 0.6 - 1.2 MG/DL OUTSIDE LAB (SEE SCANNED REPORT) EGFR-OUTSIDE LAB 95.6 ML/MIN OUTSIDE LAB (SEE SCANNED REPORT) POTASSIUM-OUTS SMITH LAB 4.3 3.5 - 5.1 MMOL/L OUTSIDE LAB (SEE SCANNED REPORT) GLUCOSE-OUTSID E LAB 119(A) 70 - 99 MG/DL OUTSIDE LAB (SEE SCANNED REPORT) ALT-OUTSIDE LAB 8 7 - 52 U/L OUTSIDE LAB (SEE SCANNED REPORT) Blood Venous blood specimen / Unknown 11/21/2023 Atif Hood MD LAB BLOOD O RDERABLES Performing Organization Address [facility] de Phone Number OUTSIDE LAB (SEE SCANNED REPORT) * CBC (11/21/2023) HEMOGLOBIN-OUTS [facility] LAB 14.4 12.0 - 16.0 G/DL OUTSIDE LAB (SEE SCANNED REPORT) Blood Venous blood specimen / Unknown 11/21/2023 Atif Hood MD LAB BLOOD O RDERABLES Performing Organization Address City/[facility] Co de Phone Number OUTSIDE LAB (SEE SCANNED REPORT) documented in this encounter Advance Directives Documents on File Type Date Recorded Patient Saloon Keeper Expl anation Advance Directives and Living Will 08/31/2004 Latest Code Status on File Code Status Date Activated Date Inactivated Comments None 08/31/2004 10:58 AM 08/31/2004 10:58 AM Care Teams Head Of Global Strategic Partnerships Relationship Specialty Start Date End Date Nisa Sánchez MD [address] [place] [facility] [place] [address] PCP - General Internal Medicine 05/12/22 documented as of this encounter
--- OUTSIDE RECORDS SUMMARY | 2024-02-20 12:25 | External Medical Summary ---
Author Name Unknown Address Unknown Organization K01:[facility]ORY [facility] [place] - [address] [place] [address] [place] [address] Laboratory Report Ordering Provider Test Date Status VENKATA HAIR 12/03/2023 13:30:02 Final Observation Date Value Abnormality Reference (Units ) Status ALT (Alanine aminotransferase) 12/03/2023 13:30:02 20 10-35 (U/L) Final Performing Location [facility] [place] [facility] [address] [place] [address]
--- OUTSIDE RECORDS SUMMARY | 2024-02-20 12:25 | External Medical Summary ---
Author Name Unknown Address Unknown Organization K01:[facility] [place] [address] [facility] [address] Laboratory Report Ordering Provider Test Date Status VENKATA HAIR 12/03/2023 13:30:02 Final Observation Date Value Abnormality Reference (Units ) Status SYNC LEUKOCYTES IN BLOOD BY AUTOMATED COUNT 12/03/2023 13:30:02 4.49 4.00-10.80 (K/uL) Final Segs 12/03/2023 13:30:02 61.1 40.0-75.0 (%) Final Lymphs % 12/03/2023 13:30:02 27.8 18.0-42.0 (%) Final Monos 12/03/2023 13:30:02 8.7 1.0-11.0 (%) Final Eosinophils 12/03/2023 13:30:02 1.3 0.0-6.0 (%) Final Basos 12/03/2023 13:30:02 0.7 0.0-2.0 (%) Final Immature Granulocyte, Percent 12/03/2023 13:30:02 0.4 0.0-2.0 (%) Final Absolute Segs 12/03/2023 13:30:02 2.74 1.80-7.70 (K/uL) Final Lymphs, absolute 12/03/2023 13:30:02 1.25 1.00-4.80 (K/ul) Final Monos, Abs 12/03/2023 13:30:02 0.39 0.00-1.10 (K/uL) Final Eos, Abs 12/03/2023 13:30:02 0.06 0.00-0.70 (K/uL) Final Basos, Abs 12/03/2023 13:30:02 0.03 0.00-0.20 (K/uL) Final Immature Granulocytes, Number 12/03/2023 13:30:02 0.02 0.00-0.20 (K/uL) Final Performing Location LAB[facility]ATORY [facility] - [address] [facility] [address]
--- OUTSIDE RECORDS SUMMARY | 2024-02-20 12:25 | External Medical Summary | Summary of Care ---
Author Name Unknown Organization [facility] Address [address] [place] [address] Phone [phone] Care Team Providers Care Crude Oil Treater Name Role Phone Nisa Sánchez MD Primary Care Provider Encounter Details Date Type Department Care Team (Late st Contact Info) Description 11/29/2023 Orders Only Laboratory, [facility] [address] [place] [address] Atif Hood MD [address] [place] [address] Abnormal results of liver function studies*; Abnormal thyroid function test Allergies Active Allergy Reactions Criticality Noted Date Comments Topiramate Other (Please comment) 09/05/2010 lethargy documented as of this encounter (statuses as of 11/29/2023) Medications Medication Sig Dispensed Refills Start Date [...] as of this encounter (statuses as of 11/29/2023) Active Problems Problem Noted Date Diagnosed Date [...] as of this encounter (statuses as of 11/29/2023) Resolved Problems Problem Noted Date Diagnosed Date [...] as of this encounter (statuses as of 11/29/2023) Immunizations Name Administration Dates Next Due PPD [...] of this encounter Plan of Treatment Scheduled Orders Name Type Priority Associated Diagnoses Orde r Schedule BILIRUBIN, DIRECT Lab Routine Abnormal results of liver function studies Abnormal thyroid function test Expected: 11/29/2023, Expires: 11/29/2024 T4, FREE Lab Routine Abnormal results of liver function studies Abnormal thyroid function test Expected: 11/29/2023, Expires: 11/29/2024 Health Maintenance Due Date Last Done Comments [...] of this encounter Visit Diagnoses Diagnosis Abnormal results of liver function studies- Primary Nonspecific abnormal results of liver function study Abnormal thyroid function test Nonspecific abnormal results of thyroid function study documented in this encounter Advance Directives Documents on File Type Date Recorded Patient Record Center Coordinator Expl anation Advance Directives and Living Will 08/31/2004 Latest Code Status on File Code Status Date Activated Date Inactivated Comments None 08/31/2004 10:58 AM 08/31/2004 10:58 AM Care Teams Crude Oil Treater Relationship Specialty Start Date End Date Nisa Sánchez MD [address] [place] [address] PCP - General Internal Medicine 05/12/22 documented as of this encounter
--- OUTSIDE RECORDS SUMMARY | 2024-02-20 12:25 | External Medical Summary ---
Author Name Unknown Address Unknown Organization [id number]:[facility] [place] [facility] [address] [facility] [address] Laboratory Report Ordering Provider Test Date Status VENKATA HAIR 12/03/2023 13:30:02 Final Observation Date Value Abnormality Reference (Units ) Status WBC, Total 12/03/2023 13:30:02 4.49 4.00-10.80 (K/uL) Final RBC 12/03/2023 13:30:02 4.61 3.85-5.15 (M/uL) Final Hemoglobin 12/03/2023 13:30:02 14.4 12.0-15.3 (g/dL) Final HCT 12/03/2023 13:30:02 42.4 36.0-45.2 (%) Final MCV 12/03/2023 13:30:02 92.0 81.5-97.5 (fL) Final MCH 12/03/2023 13:30:02 31.2 27.0-34.0 (pg) Final MCHC 12/03/2023 13:30:02 34.0 32.0-36.0 (g/dL) Final RDW 12/03/2023 13:30:02 11.9 11.5-15.5 (%) Final Platelets 12/03/2023 13:30:02 176 140-400 (K/uL) Final MPV 12/03/2023 13:30:02 10.8 6.6-11.1 (fL) Final Nucleated erythrocytes/100 leukocytes [Ratio] in Blood by Automated count 12/03/2023 13:30:02 0 <=0 (/100 WBCs) Final Performing Location [facility] [place] [address] [place] [address]
[2024-02-20] MEDS: SODIUM CHLORIDE 0.9% 1,000 ML IV SCH (15:13)
[2024-02-20] MEDS: ROSUVASTATIN CALCIUM 10 MG TAB PO SCH (15:49)
[2024-02-20] MEDS: SODIUM CHLORIDE 0.9% 500 ML IV ONE (16:41)
[2024-02-20] MEDS: SODIUM CHLORIDE 0.9% 500 ML IV SCH (20:51)
[2024-02-21 06:23] LABS: Basophils # (auto) 0.02 K/uL (0.00-0.20); Basophils % (auto) 0.4 %; Eosinophils # (auto) 0.06 K/uL (0.00-0.50); Eosinophils % (auto) 1.1 %; Hematocrit (blood only) 36.7 % (37.0-47.0); Hemoglobin 12.5 g/dl (12.0-16.0); Immature Granulocytes # (auto) 0.01 K/uL (0.01-0.20); Immature Granulocytes % (auto) 0.2 %; Lymphocytes % (auto) 26.6 %; Mean Corpuscular Hemoglobin 30.5 pg (25.0-34.0); Mean Corpuscular Hgb Conc 34.1 g/dL (32.0-36.0); Mean Corpuscular Volume 89.5 fL (80.0-100.0); Mean Platelet Volume 10.8 fL (9.4-12.4); Monocytes # (auto) 0.51 K/uL (0.11-0.59); Monocytes % (auto) 9.7 %; Neutrophils # (auto) 3.27 K/uL (1.40-6.50); Platelet Count 102 K/uL (130-400); RDW Coefficient of Variation 11.9 % (11.5-14.5); RDW Standard Deviation 38.5 fL (36.4-46.3); White Blood Count 5.27 K/ul (4.8-10.8)
[2024-02-21 06:32] LABS: BUN Creatinine Ratio 15.6 (10-20); Calcium 8.9 mg/dl (8.6-10.3); Creatinine Clr Calc Pharmacy 75.9 ml/min; Est GFR (African American) 102.2 ml/min; Est GFR (Non-African American) 88.2 ml/min; Phosphorus 3.7 mg/dl (2.5-4.9); Potassium 3.9 mmol/L (3.5-5.1)
[2024-02-21] MEDS: LACTATED RINGER'S 500 ML IV ONE (07:47)
[2024-02-21] MEDS: CITALOPRAM 20 MG TAB PO SCH (07:48)
[2024-02-21] MEDS: ASPIRIN 81 MG ECTAB PO SCH (07:48)
[2024-02-21] MEDS: CLOPIDOGREL BISULFATE 75 MG TAB PO SCH (07:48)
[2024-02-21] MEDS: METOPROLOL SUCC 50MG EXT REL TAB PO SCH (07:49)
--- NOTE | 2024-02-21 11:27 | Cardiology Progress Note ---
Date of Service February 21, 2024 Assessment & Plan (1) Status post insertion of drug-eluting stent into left anterior descending (LAD) artery: (2) Abnormal stress echocardiogram: (3) Dyslipidemia, goal LDL below 70: (4) Sinus bradycardia: Plan Discussed importance of continuing dual antiplatelet therapy for minimum of 6 months post percutaneous intervention. Titrate rosuvastatin to 20 mg daily. Repeat fasting lipid panel and ALT in approximately 6 weeks. Discontinue meto prolol due to marked sinus bradycardia and borderline hypotension. No further inpatient cardiac testing or intervention recommended at this time. Postcardiac catheterization activity/work restrictions noted below. Patient may return to work on 02/25/2024. Cardiology follow-up as scheduled 03/11/24. ACTIVITY RECOMMENDATIONS: It is common to feel weak and fatigue for a few days. * Do not drive or operate any motorized equipment for the next three days. * Limit stair usage (2 or 3 trips a day only) for the next three days. * Do not lift anything heavier than 10 pounds for the next three days. * Do not engage in vigorous exercise or any sports for the next five days. * You may shower the day after your procedure, but do not immerse the area for three days. Cleanse the site gently with soap and water. SPECIAL CARE INSTRUCTIONS: * You may replace the pressure dressing or band-aid the morning after the procedure. * After your procedure, it is normal to have a small bruise or small lump at the site. Examine your site daily for any change in the bruise or lump, redness, swelling, drainage or numbness. Notify your doctor if any change. BLEEDING: * If there is a small amount of bleeding at the site, lie down and apply firm pressure with a clean cloth for ten minutes. When the bleeding stops, lie quietly keeping the procedure limb straight for six hours. Notify your doctor as soon as possible. * If the bleeding does not stop after ten minutes or if there is a large amount of bleeding or spurting, call 911 immediately. Continue to lie down and hold firm pressure until help arrives. SKIN IRRITATION: * You may experience some redness and/or swelling in the area where radiation was administered. If any skin irritation occurs, please contact your family physician. I spent a total of 35 minutes on the date of service in preparation, delivery, and documentation of the care provided to this patient, excluding any time spent in the performance of separately billed services. Admission and Anticipated Discharge Date Admission Date: February 20, 2024 Subjective Patient seen and examined at the bedside. Feeling well overnight. Borderline hypotensive and sinus bradycardia noted on telemetry. Beta-raymond on hold. Mild soreness involving the left anterior wrist. Mild ecchymosis. No hematoma. Offers no other concerns/complaints. Review of Systems Review of Systems: All systems reviewed & are unremarkable except as noted in Subjective Physical Exam Constitutional: well nourished; no acute distress ENMT: Mallampati Class: III Respiratory: normal respiratory effort; no respiratory distress, no labored breathing and no retractions Auscultation: no crackles, no rales, no rhonchi and no wheezes Cardiovascular: RRR, no murmur, no edema Vessels: femoral pulses present and radial pulses present; no JVD Extremities: no edema Gastrointestinal (Abdomen): Inspection/Auscultation: abdomen normal to inspection; abdomen not distended Percussion/Palpation: abdomen soft; abdomen nontender, no guarding and abdomen not rigid Neurologic: CN's II-XI intact bilaterally and moves all extremities Results & Data Vital Signs (Past 12 Hours) Vital Signs Temp Pulse Pulse Resp BP BP Pulse Ox 02/21/24 11:16 36.7 C 61 18 93/60 L 95 02/21/24 09:03 90/56 L 02/21/24 08:00 52 L 02/21/24 07:33 36.5 C 49 L 18 78/48 L 96 02/21/24 04:00 51 L 02/21/24 03:05 36.7 C 51 L 18 93/55 L 94 02/21/24 00:00 51 L O2 Del Method 02/21/24 11:16 Room Air 02/21/24 09:03 02/21/24 08:00 02/21/24 07:33 Room Air 02/21/24 04:00 02/21/24 03:05 Room Air 02/21/24 00:00 Laboratory Results CBC 02/21/24 Range/Units 05:40 WBC 5.27 (4.8-10.8) K/ul RBC 4.10 L (4.20-5.40) M/uL Hgb 12.5 (12.0-16.0) g/dl Hct 36.7 L (37.0-47.0) % Plt Count 102 L (130-400) K/uL Neut # (Auto) 3.27 (1.40-6.50) K/uL Lymph # (Auto) 1.40 (1.20-3.40) K/uL Mcpherson # (Auto) 0.51 (0.11-0.59) K/uL Eos # (Auto) 0.06 (0.00-0.50) K/uL Baso # (Auto) 0.02 (0.00-0.20) K/uL Comprehensive Metabolic Panel 02/21/24 Range/Units 05:40 Sodium 140 (136-145) mmol/L Potassium 3.9 (3.5-5.1) mmol/L Chloride 110 H (98-107) mmol/L Carbon Dioxide 26 (21-32) mmol/L BUN 12 (6-23) mg/dl Creatinine 0.77 (0.6-1.2) mg/dl Glucose 91 (70-99(Fasting)) mg/dl Calcium 8.9 (8.6-10.3) mg/dl Intake and Output 02/20/24 02/21/24 02/21/24 22:59 06:59 14:59 Intake Total 1080 / 1630 550 / 1630 500 / 500 Balance 1080 / 1630 550 / 1630 500 / 500 Intake: IV 630 / 1130 500 / 1130 500 / 500 Lactated Ringer's 500 ml @ 999 500 / 500 mls/hr IV .Q31M ONE Rx#: [id number] Sodium Chloride 0.9% 500 ml @ 630 / 630 999 mls/hr IV .Q31M ONE Rx#: [id number] Sodium Chloride 0.9% 500 ml @ 500 / 500 250 mls/hr IV .Q2H AIMEE Rx#: [id number] Oral 450 / 500 50 / 500 Other: # Unmeasured Voids 1 Weight 56.9 kg Weight Measurement Method Built in [facility]
--- NOTE | 2024-02-21 13:32 | Discharge Summary ---
Date of Service February 21, 2024 Admission HPI Per Admitting Provider 53 yo F with hx of thyroid nodule/ multinodular goiter, migraine, depression, bipolar d/o, HTN, HLD , hx of smoking who was evaluated for progressive symptoms of angina and underwent a stress test in January which was positive. She was seen by [facility] cardiology and cardiac cath was recommended. She underwent cardiac cath today w/ Dr. Cooley and found to have stenosis in LAD. She then underwent PCI with Dr. Monsalve. Currently she is feeling well, denies any chest pain, shortness of breath, dizziness. She is only feeling hungry and she is having lunch. Her sister in law is present at the bedside. Pt says she quit smoking a year ago. Says she was having chest pain when walking up the stairs which prompted her the evaluation but most recently she has been having chest pains even at rest when in bed. Stress test - Exercise stress echocardiogram January 2024: Interpretation Summary The examination is adequate to evaluate the referral indication. The stress echo is borderline positive for inducible ischemia. Exercise capacity is below average . There was an accelerated heart rate response to exercise Blood pressure response to exercise was normal. The stress test was terminated due to dyspnea. Mild low-grade chest burning noted in the recovery phase Equivocal 0.5-1mm horizontal/downsloping ST-segment depression is noted in inferior leads. The left ventricular wall motion is normal. With stress the apical inferoseptal wall fails to improve to the degree of other segments. All other wall segments become hyperdynamic The left ventricular ejection fraction increases normally with stress. The left ventricular systolic function is normal. The qualitative LV ejection fraction is 55-59% (normal). Admission Exam Per Admitting Provider Constitutional: WD/WN, vitals as above Eyes: PERRL, conjunctivae normal, anicteric sclerae ENMT: external ear and nose normal, oropharynx normal Neck: normal visual inspection Respiratory: normal respiratory effort, lungs clear to auscultation Cardiovascular: RRR, no murmur, no edema Chest (Breasts): Chest: normal inspection of chest Gastrointestinal (Abdomen): normal bowel sounds, soft, nontender, no hepatosplenomegaly Musculoskeletal: no cyanosis or clubbing, extremities motor strength 5/5 Skin: no rashes, warm and dry Neurologic: PERRL, EOMI, accommodation nl, no face palsy, no dysarthria Psychiatric: A+Ox3, euthymic affect Lymphatic: no lymphedema Principal Diagnosis Unstable Angina S/p PCI of mid LAD Discharge Exam Constitutional: WD/WN, vitals as above, NAD, sitting up in bed, pleasant, conversing easily Respiratory: normal respiratory effort, lungs clear to auscultation, no wheeze, rales, rhonchi. Normal insp/exp effort, no accessory muscle use Cardiovascular: RRR, no murmur, no edema Vessels: no JVD or carotid bruit Chest: normal inspection of chest Abdomen: normal bowel sounds, soft, nontender, no hepatosplenomegaly Musculoskeletal: no cyanosis or clubbing, extremities motor strength 5/5 Skin: no rashes, warm and dry normal turgor Neurologic: PERRL, EOMI, accommodation nl, no face palsy, no dysarthria CN's II- XI intact bilaterally and moves all extremities Psychiatric: A+Ox3, euthymic affect Discharge Data Allergies Allergy/AdvReac Type Severity Reaction Status Date / Time aspirin AdvReac Abdominal Verified 02/20/24 07:15 Pain topiramate [From Topamax] AdvReac Drowsy Verified 02/20/24 07:15 Consultations 02/20/24 10:35 Consult Cardiology Routine Procedures Performed Operation Date: 02/20/24 08:00 Actual Procedures p Cath, Left with Cors and Vent - DO rebekah Goetz IVUS Coronary Single Vessel - Ramirez Monsalve MD s Cineradiography w/Routine Exam - DO rebekah Goetz Ultrasound Vascular Access - DO rebekah Goetz Drug Eluting Stent SGl Vessel - Ramirez Monsalve MD Ordered Studies 02/20/24 06:56 CL Cath Imgs for PACS use only Routine 02/20/24 10:14 CL IVUS Coronary Single Vessel Routine Hospital Course (1) Unstable angina: Patient was evaluated for progressive symptoms of angina and underwent a stress test in January which was positive. She was seen by [facility] cardiology and cardiac cath was recommended. She underwent cardiac cath w/ Dr. Cooley and found to have stenosis in LAD. She then underwent PCI with Dr. Monsalve. Patient was found to have severe single-vessel disease with 90+% mid LAD involving bifurcation of D1, D2. Now s/p Successful PCI of proximal to mid LAD with single drug-eluting stent (2.5 x 30 mm [place]; postdilated with 3.0 NC). Loaded with clopidogrel 600 mg in [employer] Continue dual-antiplatelet therapy for at least 6 months Continue statin, and ASCVD risk factor modification Metoprolol stopped at discharge due to bradycardia and low blood pressure Rosuvastatin increased to 20 mg once a day Please note the above document was generated using voice recognition software. It may contain grammatical, syntax or spelling errors. Any formal questions or concerns about the content, text or information contained within the body of this dictation should be directly addressed to the provider for clarification Total Time Total Time Spent Total Time Spent (In Minutes): 45 Total Time Includes: Examination of the Patient, Discharge Planning, Medication Reconciliation, Communication With Other Providers and Other Discharge Plan Discharge Items Patient Disposition: Home - Self-Care Reason For Visit: Abnormal Stress Echo, New Onset Angina Discharge Diagnosis: Unstable angina status post PCI of LAD Activity: Resume your previous activity Non-emergency contact: Primary Care Provider Call non-emergency contact if: you have any medication questions and your symptoms worsen Follow-up/Referrals: [facility] [Other] (Please follow up with Dr Hood/CVIM as discussed. ) Velasquez Rollins DO [[employer]] - (Date & Time 03/11/2024 2:30 PM Provider Velasquez Rollins DO Department Cardiology, [facility] ) Diet: Regular Addtl Attending Provider Instructions: You were admitted to the hospital for unstable angina. You underwent stenting of one of your heart vessels. Following changes are made to your medication regimen: 1) Aspirin and Plavix. You need to take them for at least 6 months. 2) Rosuvastatin is increased to 20 mg once a day. 3) Stop taking metoprolol Stop taking triptans as it can cause coronary spasms and can lead to heart attack. Please discuss with your primary care doctor regarding alternatives. An appointment will be set up for you. Pending Studies at Discharge: No Stand-Alone Forms: [employer], Smoking Cessation Medications and DC Order Prescriptions: New clopidogrel 75 mg Tablet 75 mg PO QAM 90 Days Qty: 90 0RF aspirin 81 mg Tablet,Delayed Release (Dr/Ec) 81 mg PO QAM 90 Days Qty: 90 0RF rosuvastatin [Crestor] 20 mg Tablet 20 mg PO DAILY 90 Days Qty: 90 0RF Continued aspirin 81 mg Tablet,Delayed Release (Dr/Ec) 81 mg PO DAILY citalopram [Celexa] 20 mg Tablet 10 mg PO DAILY nitroglycerin 0.4 mg Tablet, Sublingual 0.4 mg sublingual PRN (Reason: Chest Pain) albuterol sulfate 90 mcg/actuation Hfa Aerosol Inhaler 2 puff INHALATION 6XD PRN (Reason: Wheezing) Discontinued sumatriptan succinate [Imitrex] 25 mg Tablet 100 mg PO DIRECTED PRN (Reason: Migraine Headache) metoprolol succinate 50 mg Tablet Extended Release 24 Hr 50 mg PO DAILY sumatriptan 20 mg/actuation [place],Non-Aerosol 20 mg INTRANASAL PRN (Reason: Headache) rosuvastatin 10 mg Tablet 10 mg PO DAILY Admission Data Admit Date/Time: 02/20/24 10:14 Attending Provider: Mello Jordan Admit Provider: Edmundo Cooley Primary Care Provider: PCP,NO Other Providers: Edmundo Cooley
[2024-02-22] MEDS ORDERED: ROSUVASTATIN CALCIUM 20 MG TAB PO SCH (09:00)
--- NOTE | 2024-02-22 09:42 | Electrocardiogram Report ---
Test Reason : Blood Pressure : / mmHG Vent. Rate : 048 BPM Atrial Rate : 048 BPM P-R Int : 148 ms QRS Dur : 076 ms QT Int : 426 ms P-R-T Axes : 039 066 080 degrees QTc Int : 380 ms Sinus bradycardia Otherwise normal ECG No previous ECGs available Confirmed by Adrian Bright ([id number]) on 02/22/2024 9:42:05 AM Referred By: Velasquez Rollins Confirmed By:Adrian Bright
== END 2024-02-21 15:20 | disposition home or self-care (01) ==
LOC: 2S 06:42 → CC 06:42 → SUATTDRO 10:14